=== PATIENT | male | born 1955 | race Hispanic/Latino ===

== ENCOUNTER 2019-04-09 19:25 | Inpatient (IN) | payer MEDICARE ==
[2019-04-09] MEDS ORDERED: NACL 0.9% 500 ML 500 ML IV ONE (20:05)
--- NOTE | 2019-04-09 20:09 | Emergency Department Report ---
ED Altered Mental Status HPI - General Stated Complaint: GENERAL PAIN Time Seen by Provider: 04/09/19 20:01 Source: patient Limitations: Altered Mental Status - History of Present Illness Initial Comments: Mr. Martin is a 64 yo male with hx of "[place] measles", "damage to left brain", hx of dementia, anxiety depression dyslipidemia, acid reflux with fever, generalized malaise hx of "renal failure" from home. Sister and several relatives are patient caregiver. Mr. Martin is a poor historian. He speaks of tailbone pain. Sister Karla Strickland is a caregiver. She give hx. She has n oticed fever, rapid heart beat. He has not eaten for quite some time. Not as active. No walking. He can not read or write due to intellectual disability. He retired 5 years ago. He worked for [employer]. No recent falls. Did have a fall November. Has had tremors. No concrete diagnosis of Parkinson's disease PCP Dr. Red Velasquez. Medications: Acid reflux medication Pravastatin Xanax [place] 10/325 Complaint: altered mental status -: unknown Severity: mild, moderate Consistency of Symptoms: waxing and waning Context: unknown Associated Symptoms: malaise - Related Data Home Medications Medication Instructions Recorded Confirmed Last Taken Oxycodone HCl/Acetaminophen 1 tab PO Q6H 02/02/16 02/02/16 Unknown [Percocet 10/325 mg] Rosuvastatin Calcium [Crestor] 40 mg PO QHS 02/02/16 02/02/16 Unknown guaiFENesin/DEXTROMETHORPHAN 1 tab PO BID 02/02/16 02/02/16 Unknown [Mucinex Dm ER 1,200-60 mg Tab] methOCARBAMOL [Robaxin TAB] 500 mg PO Q6H PRN 02/02/16 02/02/16 Unknown Previous Rx's Medication Instructions Recorded Last Taken Type ALPRAZolam [Xanax TAB] 1 mg PO TID PRN #20 tablet 02/02/16 Unknown Rx Allergies Allergy/AdvReac Type Severity Reaction Status Date / Time No Known Allergies Allergy Unverified 02/02/16 11:34 ED Review of Systems ROS: Stated complaint: GENERAL PAIN Other details as noted in HPI Comment: Unobtainable due to pts medical conditions (altered mental status) ED Past Medical Hx - Past Medical History Previous Medical History?: Yes Additional medical history: ANXIETY/ CHRONIC BACK PAIN/hyperlipidemia - Surgical History Additional Surgical History: unknown - Social History Smoking Status: Current Every Day Smoker Substance Use Type: None - Medications Home Medications: Home Medications Medication Instructions Recorded Confirmed Last Taken Type ALPRAZolam [Xanax TAB] 1 mg PO TID PRN #20 tablet 02/02/16 Unknown Rx Oxycodone HCl/Acetaminophen 1 tab PO Q6H 02/02/16 02/02/16 Unknown History [Percocet 10/325 mg] Rosuvastatin Calcium [Crestor] 40 mg PO QHS 02/02/16 02/02/16 Unknown History guaiFENesin/DEXTROMETHORPHAN 1 tab PO BID 02/02/16 02/02/16 Unknown History [Mucinex Dm ER 1,200-60 mg Tab] methOCARBAMOL [Robaxin TAB] 500 mg PO Q6H PRN 02/02/16 02/02/16 Unknown History ED Physical Exam - General Limitations: Altered Mental Status General appearance: alert, other (tremulous, appears chronically ill) - Head Head exam: Present: atraumatic, normocephalic - Eye Eye exam: Present: normal appearance - ENT ENT exam: Present: mucous membranes dry - Neck Neck exam: Present: normal inspection - Respiratory Respiratory exam: Present: normal lung sounds bilaterally, wheezes, rales, rhonchi. Absent: respiratory distress - Cardiovascular Cardiovascular Exam: Present: tachycardia, irregular rhythm, normal heart sounds. Absent: systolic murmur, diastolic murmur, rubs, gallop - GI/Abdominal GI/Abdominal exam: Present: soft, normal bowel sounds. Absent: distended, tenderness, guarding, rebound - Rectal Rectal exam: Present: deferred, other (sacral redness intact skin) - Extremities Exam Extremities exam: Present: normal inspection - Back Exam Back exam: Present: normal inspection - Neurological Exam Neurological exam: Present: alert, other (oriented to name only) - Psychiatric Psychiatric exam: Present: flat affect - Skin Skin exam: Present: pallor. Absent: rash ED Course Vital Signs 04/09/19 04/09/19 19:59 20:10 Temperature 102.3 F H Pulse Rate 140 H Respiratory 20 20 Rate Blood Pressure 119/80 O2 Sat by Pulse 100 100 Oximetry - Lab Data Result diagrams: 04/09/19 20:22 04/09/19 20:22 Lab Results 04/09/19 04/09/19 04/09/19 Range/Units 20:22 20:22 20:22 WBC 15.4 H (4.5-11.0) K/mm3 RBC 5.36 H (3.65-5.03) M/mm3 Hgb 16.9 H (11.8-15.2) gm/dl Hct 49.5 H (35.5-45.6) % MCV 93 (84-94) fl MCH 32 (28-32) pg MCHC 34 (32-34) % RDW 13.5 (13.2-15.2) % Plt Count 329 (140-440) K/mm3 Lymph % (Auto) 6.0 L (13.4-35.0) % [place] % (Auto) 4.4 (0.0-7.3) % Eos % (Auto) 0.1 (0.0-4.3) % Baso % (Auto) 0.5 (0.0-1.8) % Lymph # 0.9 L (1.2-5.4) K/mm3 [place] # 0.7 (0.0-0.8) K/mm3 Eos # 0.0 (0.0-0.4) K/mm3 Baso # 0.1 (0.0-0.1) K/mm3 Seg Neutrophils % 89.0 H (40.0-70.0) % Seg Neutrophils # 13.7 H (1.8-7.7) K/mm3 PT 12.8 (12.2-14.9) Sec. INR 0.91 (0.87-1.13) Sodium 130 L (137-145) mmol/L Potassium 4.9 (3.6-5.0) mmol/L Chloride 92.6 L (98-107) mmol/L Carbon Dioxide 24 (22-30) mmol/L Anion Gap 18 mmol/L BUN 13 (9-20) mg/dL Creatinine 1.2 (0.8-1.5) mg/dL Estimated GFR > 60 ml/min BUN/Creatinine Ratio 11 % Glucose 186 H (75-100) mg/dL Lactic Acid (0.7-2.0) mmol/L Calcium 8.4 (8.4-10.2) mg/dL Total Bilirubin 1.70 H (0.1-1.2) mg/dL AST 121 H (5-40) units/L ALT 85 H (7-56) units/L Alkaline Phosphatase 442 H (35-129) units/L Ammonia (25-60) umol/L Total Creatine Kinase (55-170) units/L Troponin T 0.044 H (0.00-0.029) ng/mL Total Protein 6.9 (6.3-8.2) g/dL Albumin 3.6 L (3.9-5) g/dL Albumin/Globulin Ratio 1.1 % Triglycerides 120 (2-149) mg/dL Cholesterol 179 (50-199) mg/dL LDL Cholesterol Direct 115 (50-130) mg/dL HDL Cholesterol 56 (40-59) mg/dL Cholesterol/HDL Ratio 3.19 % TSH (0.270-4.200) mlU/mL Urine Color (Yellow) Urine Turbidity (Clear) Urine pH (5.0-7.0) Ur Specific [place] (1.003-1.030) Urine Protein (Negative) mg/dL Urine Glucose (UA) (Negative) mg/dL Urine Ketones (Negative) mg/dL Urine Blood (Negative) Urine Nitrite (Negative) Urine Bilirubin (Negative) Urine Urobilinogen (<2.0) mg/dL Ur Leukocyte Esterase (Negative) Urine WBC (Auto) (0.0-6.0) /HPF Urine RBC (Auto) (0.0-6.0) /HPF U Epithel Cells (Auto) (0-13.0) /HPF Urine Mucus /HPF Salicylates (2.8-20.0) mg/dL Urine Opiates Screen Urine Methadone Screen Acetaminophen (10.0-30.0) ug/mL Ur Barbiturates Screen Ur Phencyclidine Scrn Ur Amphetamines Screen U Benzodiazepines Scrn Urine Cocaine Screen U Marijuana (THC) Screen Drugs of Abuse Note Plasma/Serum Alcohol (0-0.07) % 04/09/19 04/09/19 04/09/19 Range/Units 20:22 20:22 20:22 WBC (4.5-11.0) K/mm3 RBC (3.65-5.03) M/mm3 Hgb (11.8-15.2) gm/dl Hct (35.5-45.6) % MCV (84-94) fl MCH (28-32) pg MCHC (32-34) % RDW (13.2-15.2) % Plt Count (140-440) K/mm3 Lymph % (Auto) (13.4-35.0) % [place] % (Auto) (0.0-7.3) % Eos % (Auto) (0.0-4.3) % Baso % (Auto) (0.0-1.8) % Lymph # (1.2-5.4) K/mm3 [place] # (0.0-0.8) K/mm3 Eos # (0.0-0.4) K/mm3 Baso # (0.0-0.1) K/mm3 Seg Neutrophils % (40.0-70.0) % Seg Neutrophils # (1.8-7.7) K/mm3 PT (12.2-14.9) Sec. INR (0.87-1.13) Sodium (137-145) mmol/L Potassium (3.6-5.0) mmol/L Chloride (98-107) mmol/L Carbon Dioxide (22-30) mmol/L Anion Gap mmol/L BUN (9-20) mg/dL Creatinine (0.8-1.5) mg/dL Estimated GFR ml/min BUN/Creatinine Ratio % Glucose (75-100) mg/dL Lactic Acid 1.80 (0.7-2.0) mmol/L Calcium (8.4-10.2) mg/dL Total Bilirubin (0.1-1.2) mg/dL AST (5-40) units/L ALT (7-56) units/L Alkaline Phosphatase (35-129) units/L Ammonia (25-60) umol/L Total Creatine Kinase (55-170) units/L Troponin T (0.00-0.029) ng/mL Total Protein (6.3-8.2) g/dL Albumin (3.9-5) g/dL Albumin/Globulin Ratio % Triglycerides (2-149) mg/dL Cholesterol (50-199) mg/dL LDL Cholesterol Direct (50-130) mg/dL HDL Cholesterol (40-59) mg/dL Cholesterol/HDL Ratio % TSH (0.270-4.200) mlU/mL Urine Color (Yellow) Urine Turbidity (Clear) Urine pH (5.0-7.0) Ur Specific [place] (1.003-1.030) Urine Protein (Negative) mg/dL Urine Glucose (UA) (Negative) mg/dL Urine Ketones (Negative) mg/dL Urine Blood (Negative) Urine Nitrite (Negative) Urine Bilirubin (Negative) Urine Urobilinogen (<2.0) mg/dL Ur Leukocyte Esterase (Negative) Urine WBC (Auto) (0.0-6.0) /HPF Urine RBC (Auto) (0.0-6.0) /HPF U Epithel Cells (Auto) (0-13.0) /HPF Urine Mucus /HPF Salicylates < 0.3 L (2.8-20.0) mg/dL Urine Opiates Screen Urine Methadone Screen Acetaminophen < 5.0 L (10.0-30.0) ug/mL Ur Barbiturates Screen Ur Phencyclidine Scrn Ur Amphetamines Screen U Benzodiazepines Scrn Urine Cocaine Screen U Marijuana (THC) Screen Drugs of Abuse Note Plasma/Serum Alcohol (0-0.07) % 04/09/19 04/09/19 04/09/19 Range/Units 20:22 20:22 20:22 WBC (4.5-11.0) K/mm3 RBC (3.65-5.03) M/mm3 Hgb (11.8-15.2) gm/dl Hct (35.5-45.6) % MCV (84-94) fl MCH (28-32) pg MCHC (32-34) % RDW (13.2-15.2) % Plt Count (140-440) K/mm3 Lymph % (Auto) (13.4-35.0) % [place] % (Auto) (0.0-7.3) % Eos % (Auto) (0.0-4.3) % Baso % (Auto) (0.0-1.8) % Lymph # (1.2-5.4) K/mm3 [place] # (0.0-0.8) K/mm3 Eos # (0.0-0.4) K/mm3 Baso # (0.0-0.1) K/mm3 Seg Neutrophils % (40.0-70.0) % Seg Neutrophils # (1.8-7.7) K/mm3 PT (12.2-14.9) Sec. INR (0.87-1.13) Sodium (137-145) mmol/L Potassium (3.6-5.0) mmol/L Chloride (98-107) mmol/L Carbon Dioxide (22-30) mmol/L Anion Gap mmol/L BUN (9-20) mg/dL Creatinine (0.8-1.5) mg/dL Estimated GFR ml/min BUN/Creatinine Ratio % Glucose (75-100) mg/dL Lactic Acid (0.7-2.0) mmol/L Calcium (8.4-10.2) mg/dL Total Bilirubin (0.1-1.2) mg/dL AST (5-40) units/L ALT (7-56) units/L Alkaline Phosphatase (35-129) units/L Ammonia 44.0 (25-60) umol/L Total Creatine Kinase 23 L (55-170) units/L Troponin T (0.00-0.029) ng/mL Total Protein (6.3-8.2) g/dL Albumin (3.9-5) g/dL Albumin/Globulin Ratio % Triglycerides (2-149) mg/dL Cholesterol (50-199) mg/dL LDL Cholesterol Direct (50-130) mg/dL HDL Cholesterol (40-59) mg/dL Cholesterol/HDL Ratio % TSH (0.270-4.200) mlU/mL Urine Color (Yellow) Urine Turbidity (Clear) Urine pH (5.0-7.0) Ur Specific [place] (1.003-1.030) Urine Protein (Negative) mg/dL Urine Glucose (UA) (Negative) mg/dL Urine Ketones (Negative) mg/dL Urine Blood (Negative) Urine Nitrite (Negative) Urine Bilirubin (Negative) Urine Urobilinogen (<2.0) mg/dL Ur Leukocyte Esterase (Negative) Urine WBC (Auto) (0.0-6.0) /HPF Urine RBC (Auto) (0.0-6.0) /HPF U Epithel Cells (Auto) (0-13.0) /HPF Urine Mucus /HPF Salicylates (2.8-20.0) mg/dL Urine Opiates Screen Urine Methadone Screen Acetaminophen (10.0-30.0) ug/mL Ur Barbiturates Screen Ur Phencyclidine Scrn Ur Amphetamines Screen U Benzodiazepines Scrn Urine Cocaine Screen U Marijuana (THC) Screen Drugs of Abuse Note Plasma/Serum Alcohol < 0.01 (0-0.07) % 04/09/19 04/09/19 04/09/19 Range/Units 20:22 21:49 21:49 WBC (4.5-11.0) K/mm3 RBC (3.65-5.03) M/mm3 Hgb (11.8-15.2) gm/dl Hct (35.5-45.6) % MCV (84-94) fl MCH (28-32) pg MCHC (32-34) % RDW (13.2-15.2) % Plt Count (140-440) K/mm3 Lymph % (Auto) (13.4-35.0) % [place] % (Auto) (0.0-7.3) % Eos % (Auto) (0.0-4.3) % Baso % (Auto) (0.0-1.8) % Lymph # (1.2-5.4) K/mm3 [place] # (0.0-0.8) K/mm3 Eos # (0.0-0.4) K/mm3 Baso # (0.0-0.1) K/mm3 Seg Neutrophils % (40.0-70.0) % Seg Neutrophils # (1.8-7.7) K/mm3 PT (12.2-14.9) Sec. INR (0.87-1.13) Sodium (137-145) mmol/L Potassium (3.6-5.0) mmol/L Chloride (98-107) mmol/L Carbon Dioxide (22-30) mmol/L Anion Gap mmol/L BUN (9-20) mg/dL Creatinine (0.8-1.5) mg/dL Estimated GFR ml/min BUN/Creatinine Ratio % Glucose (75-100) mg/dL Lactic Acid (0.7-2.0) mmol/L Calcium (8.4-10.2) mg/dL Total Bilirubin (0.1-1.2) mg/dL AST (5-40) units/L ALT (7-56) units/L Alkaline Phosphatase (35-129) units/L Ammonia (25-60) umol/L Total Creatine Kinase (55-170) units/L Troponin T (0.00-0.029) ng/mL Total Protein (6.3-8.2) g/dL Albumin (3.9-5) g/dL Albumin/Globulin Ratio % Triglycerides (2-149) mg/dL Cholesterol (50-199) mg/dL LDL Cholesterol Direct (50-130) mg/dL HDL Cholesterol (40-59) mg/dL Cholesterol/HDL Ratio % TSH 1.160 (0.270-4.200) mlU/mL Urine Color [place] (Yellow) Urine Turbidity Clear (Clear) Urine pH 6.0 (5.0-7.0) Ur Specific [place] 1.016 (1.003-1.030) Urine Protein <15 mg/dl (Negative) mg/dL Urine Glucose (UA) Neg (Negative) mg/dL Urine Ketones Neg (Negative) mg/dL Urine Blood Neg (Negative) Urine Nitrite Neg (Negative) Urine Bilirubin Neg (Negative) Urine Urobilinogen 4.0 (<2.0) mg/dL Ur Leukocyte Esterase Neg (Negative) Urine WBC (Auto) 2.0 (0.0-6.0) /HPF Urine RBC (Auto) 1.0 (0.0-6.0) /HPF U Epithel Cells (Auto) < 1.0 (0-13.0) /HPF Urine Mucus Few /HPF Salicylates (2.8-20.0) mg/dL Urine Opiates Screen Presumptive negative Urine Methadone Screen Presumptive negative Acetaminophen (10.0-30.0) ug/mL Ur Barbiturates Screen Presumptive negative Ur Phencyclidine Scrn Presumptive negative Ur Amphetamines Screen Presumptive negative U Benzodiazepines Scrn Presumptive positive Urine Cocaine Screen Presumptive negative U Marijuana (THC) Screen Presumptive negative Drugs of Abuse Note Disclamer Plasma/Serum Alcohol (0-0.07) % - Radiology Data Radiology results: report reviewed ap cxr: left lower lobe atelectasis heat CT: 1.3 extraaxial density left frontal lobe SDH vs artifact vs meningioma - Medical Decision Making Mr. Martin presents with fever, tachycardia, poor appetite, decreased activity. Possible pneumonia according to CXR atelectasis left lower lobe. I spoke with radiologist, suspect artifact on CT head. No hx of trauma a ccording to sister. No signs of head trauma. Sister did state that he has responded to SNF for rehabilitation after previous hospitalization. With hemoconcentration volume contraction evident with hyponatremia. Irregular heartbeat with tachycardia seen on quality assurance monitor. Dilitiazem bolus administered. Repeat heartrate 70 bpm Admitted to hospitalist service for further treatment Critical Care Time: Yes Critical care attestation.: If time is entered above; I have spent that time in minutes in the direct care of this critically ill patient, excluding procedure time. 40 minutes of critical care time excluding procedures were used in the care of the patient. Patient required multiple assessments and interventions. I reviewed the electronic medical record. I spoke with consultants involved in the care of the patient. ED Disposition Clinical Impression: Community acquired pneumonia, SIRS (systemic inflammatory response syndrome), Dehydration with hyponatremia Disposition: OP ADMIT IP TO THIS HOSP Is pt being admited?: Yes Does the pt Need Aspirin: No Condition: Stable
[2019-04-09] MEDS ORDERED: TYLENOL PR ONE (20:27)
[2019-04-09 20:48] LABS: Basophils # (Auto) 0.1 K/mm3 (0.0-0.1); Basophils % (Auto) 0.5 % (0.0-1.8); Eosinophils % (Auto) 0.1 % (0.0-4.3); Hematocrit 49.5 % (35.5-45.6); Hemoglobin 16.9 gm/dl (11.8-15.2); Lymphocytes # (Auto) 0.9 K/mm3 (1.2-5.4); Mean Corpuscular HGB Conc 34 % (32-34); Mean Corpuscular Volume 93 fl (84-94); Monocytes # (Auto) 0.7 K/mm3 (0.0-0.8); Monocytes % (Auto) 4.4 % (0.0-7.3); Platelet Count 329 K/mm3 (140-440); Red Blood Count 5.36 M/mm3 (3.65-5.03); Red Cell Distribution Width 13.5 % (13.2-15.2)
[2019-04-09 21:04] LABS: Alanine Aminotransferase 85 units/L (7-56); Albumin 3.6 g/dL (3.9-5); BUN/Creatinine Ratio 11; Blood Urea Nitrogen 13 mg/dL (9-20); Calcium 8.4 mg/dL (8.4-10.2); Hemolysis Index 2
[2019-04-09 21:06] LABS: INR 0.91 (0.87-1.13)
[2019-04-09 21:15] LABS: Chol/HDL Ratio 3.19 %; HDL Cholesterol 56 mg/dL (40-59); LDL Cholesterol,Direct 115 mg/dL (50-130)
--- NOTE | 2019-04-09 21:41 | XRay Report ---
PROCEDURE: XR CHEST 1V AP TECHNIQUE: Chest radiograph single view. HISTORY: Altered Mental Status COMPARISONS: None . FINDINGS: Heart: Enlarged, left ventricular configuration. Mediastinum/Vessels: Mildly engorged. Lungs/Pleural space: Left lung base slightly clipped. Elevated left hemidiaphragm. Partially obscure d left hemidiaphragm. Slight blunting of left costophrenic sulcus. Findings suggestive of left lower lobe atelectasis. Bony thorax: No acute osseous abnormality. Life support devices: None. IMPRESSION: Findings suggesting left lower lobe volume loss. Cardiomegaly with mild pulmonary vascular congestion but no overt failure. Recommend follow-up with 2 views. This document is electronically signed by Laurie Matos MD., Apr 09 2019 09:38:32 PM ET
--- NOTE | 2019-04-09 22:17 | Cat Scan Report ---
PROCEDURE: CT HEAD/BRAIN WO CON TECHNIQUE: Computerized tomography of the head was performed without contrast material. CT DOSE LENGTH PRODUCT: 1841 mGycm HISTORY: Altered Mental Status COMPARISONS: None . FINDINGS: There is a 13 mm extra-axial density in the left frontal region on image 46. Subdural hematoma cannot be excluded. Artifact or meningioma also considered. Follow-up contrast enhanced MRI may be helpful. There is no mass effect or midline shift. There is no evidence of recent infarction. There is mild central and cortical atrophy. There is no hydrocephalus or asymmetry. There is no hyperdense arterial thrombus. Bony calvarium is intact. Nasal sinuses are clear. IMPRESSION: There is a 13 mm extra-axial density in the left frontal region on image 46. Subdural hematoma cannot be excluded. Artifact or meningioma also considered. Follow-up contrast enhanced MRI may be helpful. There is no mass effect or midline shift. There is no evidence of recent infarction. There is no hyperdense arterial thrombus. Dr. Robertson was notified by telephone at 10:20 PM This document is electronically signed by Abe Garcia MD., Apr 09 2019 10:15:25 PM ET
[2019-04-09] MEDS ORDERED: CARDIZEM IVP ONE (22:25)
[2019-04-09] MEDS ORDERED: NACL 0.9% 1000 ML 1,000 ML IV ONE (22:26)
[2019-04-09 22:36] LABS: Bilirubin,Urine NEG (Negative); Blood,Urine NEG (Negative); Color,Urine Amber (Yellow); Mucus,Urine FEW /HPF; Protein,Urine <15 mg/dL mg/dL (Negative)
[2019-04-09 22:51] LABS: Amphetamine Screen,Urine PRESUMPTIVE NEGATIVE; Cannabinoid Screen,Urine PRESUMPTIVE NEGATIVE; Cocaine Screen,Urine PRESUMPTIVE NEGATIVE; Methadone Screen,Urine PRESUMPTIVE NEGATIVE; Opiate Screen,Urine PRESUMPTIVE NEGATIVE
[2019-04-09 23:06] LABS: Benzodiazepines Screen,Urine PRESUMPTIVE POSITIVE
--- NOTE | 2019-04-09 23:51 | History and Physical Report ---
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 Pt is awake and alert but unable to provide medical history mental retardation. In the ER patient had a temperature of 102.3 heart rate is 140, laboratory values showed elevated LFTs, H&H and WBC, broad-spectrum antibiotics was initiated if patient is admitted for further evaluation and treatment. PCP Dr. Red Velasquez. Past History Past Medical History: hypertension, hyperlipidemia, other (metabolic encephalopathy) Past Surgical History: No surgical history Social history: no significant social history, lives with family Family history: no significant family history Medications and Allergies Allergies Allergy/AdvReac Type Severity Reaction Status Date / Time No Known Allergies Allergy Unverified 02/02/16 11:34 Home Medications Medication Instructions Recorded Confirmed Last Taken Type Rosuvastatin Calcium [Crestor] 40 mg PO QHS 02/02/16 04/10/19 Unknown History ALPRAZolam [Xanax TAB] 1 mg PO TID PRN #10 tablet 04/15/19 Unknown Rx Amiodarone [Cordarone 200 MG TAB] 200 mg PO DAILY #30 tablet 04/15/19 Unknown Rx Carvedilol [Coreg] 6.25 mg PO BID #60 tablet 04/15/19 Unknown Rx Docusate Sodium [Colace CAP] 100 mg PO BID #60 capsule 04/15/19 Unknown Rx Polyethylene Glycol 3350 [Miralax 17 gm PO QDAY PRN #30 powd.pack 04/15/19 Unknown Rx 3350] oxyCODONE /ACETAMINOPHEN [Percocet 1 tab PO Q6H PRN #10 tablet 04/15/19 Unknown Rx 5/325 mg] Active Meds: Active Medications Enoxaparin Sodium (Lovenox) 40 mg SUB-Q QDAY [facility] Ceftriaxone Sodium (Rocephin/Ns 2 Gm/100 Ml) 2 gm in 100 mls @ 200 mls/hr IV Q24HR [facility]; Protocol Azithromycin 500 mg/ Sodium (Chloride) 250 mls @ 250 mls/hr IV Q24HR [facility]; Protocol Review of Systems ROS unobtainable: due to mental status Exam - Constitutional Vitals: Temp Pulse Resp BP Pulse Ox 102.3 F H 140 H 20 119/80 100 04/09/19 19:59 04/09/19 19:59 04/09/19 20:10 04/09/19 19:59 04/09/19 20:10 General appearance: Present: no acute distress - EENT Eyes: Present: EOM intact ENT: hearing intact - Neck Neck: Present: normal ROM - Respiratory Respiratory: bilateral: CTA - Cardiovascular Rhythm: irregularly irregular - Extremities Extremities: no ischemia, No edema Peripheral Pulses: within normal limits - Abdominal General gastrointestinal: Present: deferred Male genitourinary: Present: deferred - Rectal Rectal Exam: deferred - Integumentary Integumentary: Present: warm, dry - Musculoskeletal Musculoskeletal: right sided weakness - Psychiatric Psychiatric: other (altered mental status) - Neurologic Neurologic: focal deficits Results - Labs CBC & Chem 7: 04/09/19 20:22 04/09/19 20:22 Labs: Laboratory Last Values WBC 15.4 K/mm3 (4.5-11.0) H 04/09/19 20:22 RBC 5.36 M/mm3 (3.65-5.03) H 04/09/19 20:22 Hgb 16.9 gm/dl (11.8-15.2) H 04/09/19 20:22 Hct 49.5 % (35.5-45.6) H 04/09/19 20:22 MCV 93 fl (84-94) 04/09/19 20:22 MCH 32 pg (28-32) 04/09/19 20:22 MCHC 34 % (32-34) 04/09/19 20:22 RDW 13.5 % (13.2-15.2) 04/09/19 20:22 Plt Count 329 K/mm3 (140-440) 04/09/19 20:22 Lymph % (Auto) 6.0 % (13.4-35.0) L 04/09/19 20:22 [place] % (Auto) 4.4 % (0.0-7.3) 04/09/19 20:22 Eos % (Auto) 0.1 % (0.0-4.3) 04/09/19 20:22 Baso % (Auto) 0.5 % (0.0-1.8) 04/09/19 20:22 Lymph # 0.9 K/mm3 (1.2-5.4) L 04/09/19 20:22 [place] # 0.7 K/mm3 (0.0-0.8) 04/09/19 20:22 Eos # 0.0 K/mm3 (0.0-0.4) 04/09/19 20:22 Baso # 0.1 K/mm3 (0.0-0.1) 04/09/19 20:22 Seg Neutrophils % 89.0 % (40.0-70.0) H 04/09/19 20:22 Seg Neutrophils # 13.7 K/mm3 (1.8-7.7) H 04/09/19 20:22 PT 12.8 Sec. (12.2-14.9) 04/09/19 20:22 INR 0.91 (0.87-1.13) 04/09/19 20:22 Sodium 130 mmol/L (137-145) L 04/09/19 20:22 Potassium 4.9 mmol/L (3.6-5.0) 04/09/19 20:22 Chloride 92.6 mmol/L (98-107) L 04/09/19 20:22 Carbon Dioxide 24 mmol/L (22-30) 04/09/19 20:22 18 mmol/L 04/09/19 20:22 BUN 13 mg/dL (9-20) 04/09/19 20:22 1.2 mg/dL (0.8-1.5) 04/09/19 20:22 Estimated GFR > 60 ml/min 04/09/19 20:22 11 % 04/09/19 20:22 Glucose 186 mg/dL (75-100) H 04/09/19 20:22 Lactic Acid 1.80 mmol/L (0.7-2.0) 04/09/19 20:22 Calcium 8.4 mg/dL (8.4-10.2) 04/09/19 20:22 1.70 mg/dL (0.1-1.2) H 04/09/19 20:22 AST 121 units/L (5-40) H 04/09/19 20:22 ALT 85 units/L (7-56) H 04/09/19 20:22 442 units/L (35-129) H 04/09/19 20:22 44.0 umol/L (25-60) 04/09/19 20:22 23 units/L (55-170) L 04/09/19 20:22 0.044 ng/mL (0.00-0.029) H 04/09/19 20:22 6.9 g/dL (6.3-8.2) 04/09/19 20:22 3.6 g/dL (3.9-5) L 04/09/19 20:22 1.1 % 04/09/19 20:22 Triglycerides 120 mg/dL (2-149) 04/09/19 20:22 Cholesterol 179 mg/dL (50-199) 04/09/19 20:22 115 mg/dL (50-130) 04/09/19 20:22 56 mg/dL (40-59) 04/09/19 20:22 3.19 % 04/09/19 20:22 TSH 1.160 mlU/mL (0.270-4.200) 04/09/19 20:22 Katie (Yellow) 04/09/19 21:49 Clear (Clear) 04/09/19 21:49 6.0 (5.0-7.0) 04/09/19 21:49 Ur Specific [place] 1.016 (1.003-1.030) 04/09/19 21:49 <15 mg/dl mg/dL (Negative) 04/09/19 21:49 Neg mg/dL (Negative) 04/09/19 21:49 Neg mg/dL (Negative) 04/09/19 21:49 Neg (Negative) 04/09/19 21:49 Neg (Negative) 04/09/19 21:49 Neg (Negative) 04/09/19 21:49 4.0 mg/dL (<2.0) 04/09/19 21:49 Ur Leukocyte Esterase Neg (Negative) 04/09/19 21:49 2.0 /HPF (0.0-6.0) 04/09/19 21:49 1.0 /HPF (0.0-6.0) 04/09/19 21:49 U Epithel Cells (Auto) < 1.0 /HPF (0-13.0) 04/09/19 21:49 Few /HPF 04/09/19 21:49 Salicylates < 0.3 mg/dL (2.8-20.0) L 04/09/19 20:22 Presumptive negative 04/09/19 21:49 Presumptive negative 04/09/19 21:49 Acetaminophen < 5.0 ug/mL (10.0-30.0) L 04/09/19 20:22 Ur Barbiturates Screen Presumptive negative 04/09/19 21:49 Ur Phencyclidine Scrn Presumptive negative 04/09/19 21:49 Ur Amphetamines Screen Presumptive negative 04/09/19 21:49 U Benzodiazepines Scrn Presumptive positive 04/09/19 21:49 Presumptive negative 04/09/19 21:49 U Marijuana (THC) Screen Presumptive negative 04/09/19 21:49 Disclamer 04/09/19 21:49 Plasma/Serum Alcohol < 0.01 % (0-0.07) 04/09/19 20:22 Assessment and Plan Assessment and plan: 1. SIRS 2. Acute febrile illness (likely due to above) 3. Metabolic encephalopathy 4. Leukocytosis (likely due to #1&2) 5. Dehydration 6. Erythrocytosis (likely due to dehydration) 7. Uncontrolled DM type II 8. Elevated LFTs 9. Elevated troponin 10. Hyperlipidemia 11. GERD 12. H/o childhood [place] measle with MR 13. Hyperbilirubenia 14. Obesity Plan: Patient is admitted Broad-spectrum antibiotics Ammonia level Evaluation for hepatic infection Abdominal US IV fluids for hydration Repeat CMP and CBC in the Glycemic management with insulin per sliding scale His home meds DVT prophylaxis with Lovenox Patient's condition and plan of care discussed with Dr. Clarke Advance Directives: Yes VTE prophylaxis?: Chemical Plan of care discussed with patient/family: Yes <BECCA CLARKE - Last Filed: 04/16/19 22:14> History of Present Illness Date of admission: 04/09/19 23:31 Medications and Allergies Active Meds: Active Medications Docusate Sodium (Colace) 100 mg PO BID MARIUSZ Piperacillin Sod/Tazobactam Sod (Zosyn/Ns 3.375gm/50ml) 3.375 gm in 50 mls @ 100 mls/hr IV Q8HR [facility] Insulin Human Regular (Humulin R) 0 units SUB-Q ACHS MARIUSZ; Protocol Ondansetron HCl (Zofran) 4 mg IV Q8H PRN PRN Reason: Nausea And Vomiting Oxycodone/Acetaminophen (Percocet 5/325) 1 tab PO Q6H PRN PRN Reason: Pain, Moderate (4-6) Sodium Chloride (Sodium Chloride Flush Syringe 10 Ml) 10 ml IV BID [facility] Exam - Constitutional Vitals: Temp Pulse Resp BP Pulse Ox 102.3 F H 80 16 100/67 97 04/09/19 19:59 04/10/19 01:32 04/10/19 01:32 04/10/19 01:32 04/10/19 01:32 Results - Labs CBC & Chem 7: 04/14/19 05:04 04/14/19 05:04 Labs: Laboratory Last Values WBC 15.4 K/mm3 (4.5-11.0) H 04/09/19 20:22 RBC 5.36 M/mm3 (3.65-5.03) H 04/09/19 20:22 Hgb 16.9 gm/dl (11.8-15.2) H 04/09/19 20:22 Hct 49.5 % (35.5-45.6) H 04/09/19 20:22 MCV 93 fl (84-94) 04/09/19 20:22 MCH 32 pg (28-32) 04/09/19 20:22 MCHC 34 % (32-34) 04/09/19 20:22 RDW 13.5 % (13.2-15.2) 04/09/19 20:22 Plt Count 329 K/mm3 (140-440) 04/09/19 20:22 Lymph % (Auto) 6.0 % (13.4-35.0) L 04/09/19 20:22 [place] % (Auto) 4.4 % (0.0-7.3) 04/09/19 20:22 Eos % (Auto) 0.1 % (0.0-4.3) 04/09/19 20:22 Baso % (Auto) 0.5 % (0.0-1.8) 04/09/19 20:22 Lymph # 0.9 K/mm3 (1.2-5.4) L 04/09/19 20:22 [place] # 0.7 K/mm3 (0.0-0.8) 04/09/19 20:22 Eos # 0.0 K/mm3 (0.0-0.4) 04/09/19 20:22 Baso # 0.1 K/mm3 (0.0-0.1) 04/09/19 20:22 Seg Neutrophils % 89.0 % (40.0-70.0) H 04/09/19 20:22 Seg Neutrophils # 13.7 K/mm3 (1.8-7.7) H 04/09/19 20:22 PT 12.8 Sec. (12.2-14.9) 04/09/19 20:22 INR 0.91 (0.87-1.13) 04/09/19 20:22 Sodium 130 mmol/L (137-145) L 04/09/19 20:22 Potassium 4.9 mmol/L (3.6-5.0) 04/09/19 20:22 Chloride 92.6 mmol/L (98-107) L 04/09/19 20:22 Carbon Dioxide 24 mmol/L (22-30) 04/09/19 20:22 18 mmol/L 04/09/19 20:22 BUN 13 mg/dL (9-20) 04/09/19 20:22 1.2 mg/dL (0.8-1.5) 04/09/19 20:22 Estimated GFR > 60 ml/min 04/09/19 20:22 11 % 04/09/19 20:22 Glucose 186 mg/dL (75-100) H 04/09/19 20:22 Lactic Acid 1.80 mmol/L (0.7-2.0) 04/09/19 20:22 Calcium 8.4 mg/dL (8.4-10.2) 04/09/19 20:22 1.70 mg/dL (0.1-1.2) H 04/09/19 20:22 AST 121 units/L (5-40) H 04/09/19 20:22 ALT 85 units/L (7-56) H 04/09/19 20:22 442 units/L (35-129) H 04/09/19 20:22 44.0 umol/L (25-60) 04/09/19 20:22 23 units/L (55-170) L 04/09/19 20:22 0.044 ng/mL (0.00-0.029) H 04/09/19 20:22 6.9 g/dL (6.3-8.2) 04/09/19 20:22 3.6 g/dL (3.9-5) L 04/09/19 20:22 1.1 % 04/09/19 20:22 Triglycerides 120 mg/dL (2-149) 04/09/19 20:22 Cholesterol 179 mg/dL (50-199) 04/09/19 20:22 115 mg/dL (50-130) 04/09/19 20:22 56 mg/dL (40-59) 04/09/19 20:22 3.19 % 04/09/19 20:22 TSH 1.160 mlU/mL (0.270-4.200) 04/09/19 20:22 Katie (Yellow) 04/09/19 21:49 Clear (Clear) 04/09/19 21:49 6.0 (5.0-7.0) 04/09/19 21:49 Ur Specific [place] 1.016 (1.003-1.030) 04/09/19 21:49 <15 mg/dl mg/dL (Negative) 04/09/19 21:49 Neg mg/dL (Negative) 04/09/19 21:49 Neg mg/dL (Negative) 04/09/19 21:49 Neg (Negative) 04/09/19 21:49 Neg (Negative) 04/09/19 21:49 Neg (Negative) 04/09/19 21:49 4.0 mg/dL (<2.0) 04/09/19 21:49 Ur Leukocyte Esterase Neg (Negative) 04/09/19 21:49 2.0 /HPF (0.0-6.0) 04/09/19 21:49 1.0 /HPF (0.0-6.0) 04/09/19 21:49 U Epithel Cells (Auto) < 1.0 /HPF (0-13.0) 04/09/19 21:49 Few /HPF 04/09/19 21:49 Salicylates < 0.3 mg/dL (2.8-20.0) L 04/09/19 20:22 Presumptive negative 04/09/19 21:49 Presumptive negative 04/09/19 21:49 Acetaminophen < 5.0 ug/mL (10.0-30.0) L 04/09/19 20:22 Ur Barbiturates Screen Presumptive negative 04/09/19 21:49 Ur Phencyclidine Scrn Presumptive negative 04/09/19 21:49 Ur Amphetamines Screen Presumptive negative 04/09/19 21:49 U Benzodiazepines Scrn Presumptive positive 04/09/19 21:49 Presumptive negative 04/09/19 21:49 U Marijuana (THC) Screen Presumptive negative 04/09/19 21:49 Disclamer 04/09/19 21:49 Plasma/Serum Alcohol < 0.01 % (0-0.07) 04/09/19 20:22 Assessment and Plan Assessment and plan: 64-year-old man with a history of dementia, depression, anxiety, hyperlipidemia, GERD emergency room because he has not been eating and drinking as he normally does as found to have a fever, no source. CT of the head shows possible subdural versus artifact on one slice of the CT head. Agree with plan as discussed above except DC Lovenox, obtain MRI of the head, follow cultures, check cardiac enzymes for elevated troponin, start IV fluid
[2019-04-10] MEDS ORDERED: ZOFRAN IV PRN (00:04)
[2019-04-10 05:07] LABS: Creatine Kinase MB 1.6 ng/mL (0.0-4.0)
[2019-04-10] MEDS ORDERED: ZOSYN/NS 3.375GM/50ML 3.375 GM/50 ML BAG IV SCH (06:00)
[2019-04-10] MEDS: HumuLIN R SUB-Q SCH ×3 (08:00→21:59)
--- NOTE | 2019-04-10 09:20 | Cat Scan Report ---
PROCEDURE: CT HEAD/BRAIN W CON TECHNIQUE: Computerized tomography of the head was performed following the IV injection of iodinated nonionic contrast. CT DOSE LENGTH PRODUCT: 955.4 mGy-cm. HISTORY: ams COMPARISONS: CT head April 09, 2019. FINDINGS: Decreased attenuation regions in the periventricular and subcortical white matter are nonspecific and may represent small vessel ischemic disease, encephalopathy, edema, or a demyelinating process. Smal l vessel ischemic disease (leukoaraiosis) favored. Focal density in the left frontal lobe as seen on the prior is less dense compared to the prior but s table in location and size. Vascular calcifications. There is no evidence for acute ischemia. There is no midline shift. There is no hydrocephalus. There is no mass. Age appropriate ford-white matter attenuation is noted. There is no calvarial fracture. The temporal bones demonstrate aerated mastoid air cells. The middle ears appear unremarkable. Paranasal sinuses are unremarkable. Globes are intact. IMPRESSION: * Chronic ischemic disease. * Focal density in the left frontal lobe is less dense compared to prior but stable in size and loca tion. Findings may represent artifact, meningioma, dural vessel, or hematoma. Hematoma is lower on th e differential. This document is electronically signed by Reymundo Andre MD., Apr 10 2019 09:18:44 AM ET
[2019-04-10] MEDS ORDERED: LOVENOX SUB-Q SCH (10:00)
[2019-04-10] MEDS ORDERED: ZITHROMAX 500 MG in NACL 0.9% 250ML 250 ML IV SCH (10:00)
[2019-04-10] MEDS ORDERED: ROCEPHIN/NS 2 GM/100 ML 2 GM/100 ML BAG IV SCH (10:00)
--- NOTE | 2019-04-10 11:23 | Magnetic Resonance Report ---
PROCEDURE: MR BRAIN WO CON TECHNIQUE: Magnetic resonance imaging of the brain was performed before and after the IV injection o f paramagnetic contrast. COMPARISONS: CT brain April 09 and 2018. FINDINGS: Series 4:10 demonstrates a left frontal extra-axial lesion which is also visualized on series 8:21 me asuring 1.1 x 0.8 cm. There may be some minimal restricted diffusion. Slight decreased signal on the gradient echo sequence but no abnormal signal changes on the T1, T2, or FLAIR sequences. Midline structures are unremarkable. There is no tonsillar ectopy. Age appropriate ford-white matter differentiation is noted. There is no hydrocephalus. There is no midline shift. There is no restricted diffusion to suggest acute ischemia. The CP angles are grossly noted. Major flow voids are present. Paranasal sinuses are unremarkable. Globes are intact. Calvarial signal characteristics are grossly unremarkable. Extracranial soft tissues are intact. IMPRESSION: * Oval or round extra-axial lesion in the left frontal lobe region. Findings may represent meningiom a, tumor, dural vessel, or hematoma. Further evaluation with MRI or CT head with contrast may be help ful if clinically indicated. Coronal and sagittal reconstructed imaging is recommended. This document is electronically signed by Reymundo Andre MD., Apr 10 2019 11:21:12 AM ET
--- NOTE | 2019-04-10 11:53 | XRay Report ---
PROCEDURE: XR CHEST ROUTINE 2V TECHNIQUE: Frontal and lateral chest radiographs. HISTORY: fever COMPARISONS: Chest x-ray from earlier today. FINDINGS: Again seen is mild cardiomegaly. Mild central pulmonary vascular congestion is again seen. Elevation of the left hemidiaphragm is unchanged likely related to eventration. No consolidation. There is mild blunting of the left lateral costophrenic angle as seen on the prior study. No pleural effusion. No pneumothorax. No acute osseous abnormality. IMPRESSION: 1. Mild blunting of the left lateral costophrenic angle likely related to scarring. 2. Mild cardiomegaly and slight pulmonary vascular congestion. This document is electronically signed by Karen Fox., Apr 10 2019 11:51:08 AM ET
--- NOTE | 2019-04-10 12:34 | Progress Note ---
Assessment and Plan Assessment and plan: 64 year old man who was brought in by his family for generalized weakness, not eating complaining of tailbone pain, difficulty walking. It appears that the symptoms have been going on for weeks to months Past medical history: [place] measles causing permanent mental retardation , dementia, damage to Left Brain, history of dementia, anxiety, depression, hyperlipidemia, GERD, kidney failure, hypertension Labs reveal elevated white count of 15, elevated bilirubin 1.7, mildly elevated AST and ALT and alkaline phosphatase a 442 Urine toxicology negative Chest x-ray shows left lower lobe volume loss, mild pulmonary vascular congestion call Alvin suggest to view chest x-ray CT head shows 13 millimeter extra-axial density in the left frontal region. subdural hematoma cannot be excluded Sirs Obtain 2 view chest x-ray, ua neg Dehydration/malnutrition and failure to thrive IV fluids, physical therapy Abnormal CT head Obtain CT with contrast, MRI also ordered Transaminitis Statins on hold, continue IV fluids, check direct Billirubin, ruq sono Type 2 diabetes SSI AFib Rate controlled. Cardiology consult. 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, cont supportive care DVT prophylaxis with scds pending exclusion of subdural hematoma brain History Interval history: Patient had a fever of 102.3 overnight co gen weakness denies vomiting c/o trouble swallowing no cp, no sob Hospitalist Physical - Physical exam Narrative exam: General.: Appears well, no distress, nontoxic HEENT: Moist mucous membranes, extraocular muscles intact, no lymphadenopathy Neck: supple Cardiac: S1-S2 heard Lungs: clear to auscultation bilaterally Abdomen: soft , nontender, nondistended, bowel sounds positive Extremities: no edema clubbing or cyanosis Skin: no rash or lesions Neurologic: no gross focal deficits, generalized weakness Psych: calm, and cooperative - Constitutional Vitals: Temp Pulse Resp BP Pulse Ox 97.6 F 70 18 90/58 100 04/10/19 07:29 04/10/19 07:29 04/10/19 07:29 04/10/19 07:29 04/10/19 07:29 General appearance: Present: no acute distress Results - Labs CBC & Chem 7: 04/10/19 12:31 04/10/19 12:31 Labs: Laboratory Last Values WBC 15.4 K/mm3 (4.5-11.0) H 04/09/19 20:22 RBC 5.36 M/mm3 (3.65-5.03) H 04/09/19 20:22 Hgb 16.9 gm/dl (11.8-15.2) H 04/09/19 20:22 Hct 49.5 % (35.5-45.6) H 04/09/19 20:22 MCV 93 fl (84-94) 04/09/19 20:22 MCH 32 pg (28-32) 04/09/19 20: MCHC 34 % (32-34) 04/09/19 20:22 RDW 13.5 % (13.2-15.2) 04/09/19 20:22 Plt Count 329 K/mm3 (140-440) 04/09/19 20:22 Lymph % (Auto) 6.0 % (13.4-35.0) L 04/09/19 20:22 [place] % (Auto) 4.4 % (0.0-7.3) 04/09/19 20: Eos % (Auto) 0.1 % (0.0-4.3) 04/09/19 20: Baso % (Auto) 0.5 % (0.0-1.8) 04/09/19 20: Lymph # 0.9 K/mm3 (1.2-5.4) L 04/09/19 20: [place] # 0.7 K/mm3 (0.0-0.8) 04/09/19 20: Eos # 0.0 K/mm3 (0.0-0.4) 04/09/19 20: Baso # 0.1 K/mm3 (0.0-0.1) 04/09/19 20:22 Seg Neutrophils % 89.0 % (40.0-70.0) H 04/09/19 20: Seg Neutrophils # 13.7 K/mm3 (1.8-7.7) H 04/09/19 20:22 PT 12.8 Sec. (12.2-14.9) 04/09/19 20: INR 0.91 (0.87-1.13) 04/09/19 20:22 Sodium 130 mmol/L (137-145) L 04/09/19 20:22 Potassium 4.9 mmol/L (3.6-5.0) 04/09/19 20:22 Chloride 92.6 mmol/L (98-107) L 04/09/19 20:22 Carbon Dioxide 24 mmol/L (22-30) 04/09/19 20:22 18 mmol/L 04/09/19 20:22 BUN 13 mg/dL (9-20) 04/09/19 20:22 1.2 mg/dL (0.8-1.5) 04/09/19 20:22 Estimated GFR > 60 ml/min 04/09/19 20:22 11 % 04/09/19 20:22 Glucose 186 mg/dL (75-100) H 04/09/19 20:22 POC Glucose 97 (70-105) 04/10/19 11:38 Lactic Acid 1.80 mmol/L (0.7-2.0) 04/09/19 20:22 Calcium 8.4 mg/dL (8.4-10.2) 04/09/19 20:22 1.70 mg/dL (0.1-1.2) H 04/09/19 20:22 AST 121 units/L (5-40) H 04/09/19 20:22 ALT 85 units/L (7-56) H 04/09/19 20:22 442 units/L (35-129) H 04/09/19 20:22 26.0 umol/L (25-60) 04/10/19 04:06 26 units/L (55-170) L 04/10/19 04:06 CK-MB (CK-2) 1.6 ng/mL (0.0-4.0) 04/10/19 04:06 CK-MB (CK-2) Rel Index 6.1 (0-4) H 04/10/19 04:06 < 0.010 ng/mL (0.00-0.029) 04/10/19 04:06 6.9 g/dL (6.3-8.2) 04/09/19 20:22 3.6 g/dL (3.9-5) L 04/09/19 20:22 1.1 % 04/09/19 20:22 Triglycerides 120 mg/dL (2-149) 04/09/19 20:22 Cholesterol 179 mg/dL (50-199) 04/09/19 20:22 115 mg/dL (50-130) 04/09/19 20:22 56 mg/dL (40-59) 04/09/19 20:22 3.19 % 04/09/19 20:22 TSH 1.160 mlU/mL (0.270-4.200) 04/09/19 20:22 Katie (Yellow) 04/09/19 21:49 Clear (Clear) 04/09/19 21:49 6.0 (5.0-7.0) 04/09/19 21:49 Ur Specific [place] 1.016 (1.003-1.030) 04/09/19 21:49 <15 mg/dl mg/dL (Negative) 04/09/19 21:49 Neg mg/dL (Negative) 04/09/19 21:49 Neg mg/dL (Negative) 04/09/19 21:49 Neg (Negative) 04/09/19 21:49 Neg (Negative) 04/09/19 21:49 Neg (Negative) 04/09/19 21:49 4.0 mg/dL (<2.0) 04/09/19 21:49 Ur Leukocyte Esterase Neg (Negative) 04/09/19 21:49 2.0 /HPF (0.0-6.0) 04/09/19 21:49 1.0 /HPF (0.0-6.0) 04/09/19 21:49 U Epithel Cells (Auto) < 1.0 /HPF (0-13.0) 04/09/19 21:49 Few /HPF 04/09/19 21:49 Salicylates < 0.3 mg/dL (2.8-20.0) L 04/09/19 20:22 Presumptive negative 04/09/19 21:49 Presumptive negative 04/09/19 21:49 Acetaminophen < 5.0 ug/mL (10.0-30.0) L 04/09/19 20:22 Ur Barbiturates Screen Presumptive negative 04/09/19 21:49 Ur Phencyclidine Scrn Presumptive negative 04/09/19 21:49 Ur Amphetamines Screen Presumptive negative 04/09/19 21:49 U Benzodiazepines Scrn Presumptive positive 04/09/19 21:49 Presumptive negative 04/09/19 21:49 U Marijuana (THC) Screen Presumptive negative 04/09/19 21:49 Disclamer 04/09/19 21:49 Plasma/Serum Alcohol < 0.01 % (0-0.07) 04/09/19 20:22 Active Medications - Current Medications Current Medications: Generic Name Dose Route Start Last Admin Trade Name Freq PRN Reason Stop Dose Admin Alprazolam 1 mg 04/10/19 06:25 Xanax PO TID PRN Anxiety Docusate Sodium 100 mg 04/10/19 10:00 Colace PO BID MARIUSZ Sodium Chloride 1,000 mls @ 125 mls/hr 04/10/19 10:00 Nacl 0.9% 1000 Ml IV DIRECT MARIUSZ Azithromycin 500 mg/ Sodium 250 mls @ 250 mls/hr 04/10/19 10:00 Chloride IV Q24HR MARIUSZ Ceftriaxone Sodium 1 gm in 50 mls @ 100 mls/hr 04/10/19 10:00 Rocephin/Ns 1 Gm/50 Ml IV Q24HR [facility] Protocol Insulin Human Regular 0 units 04/10/19 07:30 04/10/19 12:29 Humulin R SUB-Q Not Given ACHS [facility] Protocol Ondansetron HCl 4 mg 04/10/19 00:04 Zofran IV Q8H PRN Nausea And Vomiting Oxycodone/Acetaminophen 1 tab 04/10/19 00:04 Percocet 5/325 PO Q6H PRN Pain, Moderate (4-6) Sodium Chloride 10 ml 04/10/19 10:00 Sodium Chloride Flush Syringe 10 Ml IV BID MARIUSZ Nutrition/Malnutrition Assess - Dietary Evaluation Nutrition/Malnutrition Findings: Nutrition Notes Start: 04/10/19 10:07 Freq: Status: Active Protocol: Document 04/10/19 10:07 RD (Rec: 04/10/19 10:30 RD [id number]) Co-Sign 04/10/19 10:07 RM Nutrition Notes Need for Assessment generated from: MD Order Initial or Follow up Brief Note Current Diagnosis CKD(stage I-IV),Hyperlipidemia Other Pertinent Diagnosis GERD, AMS, Brain Damage Current Diet Cardiac diet Subjective/Other Information RD screen for malnutrition. Pt not in room at time of visit. No family present in room. Nutrition Intervention Follow-Up By: 04/11/19 Additional Comments f/u: malnutrition assessment
[2019-04-10] MEDS: NACL 0.9% 1000 ML 1,000 ML IV SCH ×2 (12:50→21:57)
[2019-04-10] MEDS: ROCEPHIN/NS 1 GM/50 ML 1 GM/50 ML BAG IV SCH (12:51)
[2019-04-10] MEDS: ZITHROMAX 500 MG in NACL 0.9% 250ML 250 ML IV SCH (12:51)
[2019-04-10] MEDS: SODIUM CHLORIDE FLUSH SYRINGE 10 ML IV SCH ×2 (12:52→21:58)
[2019-04-10] MEDS: COLACE PO SCH ×2 (12:54→21:57)
[2019-04-10 13:05] LABS: Basophils % (Auto) 0.6 % (0.0-1.8); Eosinophils # (Auto) 0.1 K/mm3 (0.0-0.4); Eosinophils % (Auto) 1.4 % (0.0-4.3); Hematocrit 45.2 % (35.5-45.6); Hemoglobin 15.2 gm/dl (11.8-15.2); Lymphocytes % (Auto) 28.5 % (13.4-35.0); Mean Corpuscular HGB Conc 34 % (32-34); Mean Corpuscular Volume 94 fl (84-94); Monocytes # (Auto) 0.5 K/mm3 (0.0-0.8); Monocytes % (Auto) 6.8 % (0.0-7.3); Platelet Count 269 K/mm3 (140-440); Red Blood Count 4.82 M/mm3 (3.65-5.03); Red Cell Distribution Width 13.7 % (13.2-15.2)
[2019-04-10 13:09] LABS: Alanine Aminotransferase 64 units/L (7-56); Albumin 3.1 g/dL (3.9-5); BUN/Creatinine Ratio 12; Bilirubin,Direct 0.6 mg/dL (0-0.2); Blood Urea Nitrogen 11 mg/dL (9-20); Calcium 8.7 mg/dL (8.4-10.2); Hemolysis Index 7
--- NOTE | 2019-04-10 16:45 | Ultrasound Report ---
PROCEDURE: US ABDOMEN LIMITED TECHNIQUE: Transverse longitudinal sonograms obtained right upper quadrant HISTORY: transaminitis COMPARISONS: None FINDINGS: Visualized liver appears unremarkable. Gallbladder demonstrates sludge. Nodular focus measuring 4.4 x 2.4 x 3.7 cm. Hyperechoic rim. Hypoech oic internally. No shadowing. Probable sludge ball. Extrahepatic biliary dilatation. Common bile duct measures 1 cm. Right kidney measures 9.0 x 5.3 x 4.7 cm. Normal cortical thickness and echogenicity. No hydronephros is. Pancreas not well-visualized Aorta measures up to 2.7 cm. Mild ectasia. No free fluid IMPRESSION: Gallbladder demonstrates sludge and sludge ball. No cholelithiasis identified. No sonographic evidenc e of acute cholecystitis Extrahepatic biliary dilatation. Clinical correlation. If further evaluation warranted, MRCP recommen ded No right hydronephrosis No free fluid Mild ectasia of the aorta.. This document is electronically signed by Cal Santos MD., Apr 10 2019 04:42:48 PM ET
[2019-04-10] MEDS: MIRALAX 3350 PO SCH (21:57)
[2019-04-10] MEDS ORDERED: NON-FORMULARY (Rosuvastatin Calcium [Crestor] 40 MG) PO SCH (22:00)
[2019-04-11] MEDS: NACL 0.9% 1000 ML 1,000 ML IV SCH ×2 (05:28→15:17)
[2019-04-11] MEDS: HumuLIN R SUB-Q SCH ×4 (07:20→22:30)
[2019-04-11] MEDS: COLACE PO SCH ×2 (08:59→21:12)
[2019-04-11] MEDS: ROCEPHIN/NS 1 GM/50 ML 1 GM/50 ML BAG IV SCH (08:59)
[2019-04-11] MEDS: MIRALAX 3350 PO SCH (08:59)
[2019-04-11] MEDS: SODIUM CHLORIDE FLUSH SYRINGE 10 ML IV SCH ×2 (08:59→22:30)
[2019-04-11] MEDS: ZITHROMAX 500 MG in NACL 0.9% 250ML 250 ML IV SCH (09:35)
[2019-04-11] MEDS: PERCOCET 5/325 PO PRN (14:12)
--- NOTE | 2019-04-11 14:21 | Consultation ---
History of Present Illness Consult date: 04/11/19 Consult reason: atrial fibrillation History of present illness: The patient is a 64-year-old man who lives in a long term. He was brought to the emergency room for generalized pain, altered mental status, nonspecific constitutional symptoms and a fever 102F. Laboratory values show a mild to moderate elevation of the liver transaminases. Fever workup is in progress. A head CT and brain MRI both revealed a frontal lobe lesion of uncertain etiology. Cardiology consultation is requested for the finding of atrial fibrillation. On presentation, he was found with atrial fibrillation, well-controlled ventricular response. I reviewed his prior ECG in the record from January 2016, at that time he was stable sinus rhythm. The patient is a historian, unable to articulate details of any prior cardiac evaluation or prior cardiac workup. Currently does not take any AV sony blocking agents all oral anticoagulation, no suggestion of prior atrial fibrillation on review of his current medications. At this time, the patient is comfortably in his room, denies chest pain, no shortness of breath, no palpitations, no lower extremity edema. Past History Past Medical History: hypertension, hyperlipidemia, other (metabolic encephalopathy) Past Surgical History: No surgical history Social history: no significant social history, lives with family Family history: no significant family history Medications and Allergies Allergies Allergy/AdvReac Type Severity Reaction Status Date / Time No Known Allergies Allergy Unverified 02/02/16 11:34 Home Medications Medication Instructions Recorded Confirmed Last Taken Type ALPRAZolam [Xanax TAB] 1 mg PO TID PRN #20 tablet 02/02/16 04/10/19 Unknown Rx Oxycodone HCl/Acetaminophen 1 tab PO Q6H 02/02/16 04/10/19 Unknown History [Percocet 10/325 mg] Rosuvastatin Calcium [Crestor] 40 mg PO QHS 02/02/16 04/10/19 Unknown History guaiFENesin/DEXTROMETHORPHAN 1 tab PO BID 02/02/16 04/10/19 Unknown History [Mucinex Dm ER 1,200-60 mg Tab] methOCARBAMOL [Robaxin TAB] 500 mg PO Q6H PRN 02/02/16 04/10/19 Unknown History Active Meds: Active Medications Alprazolam (Xanax) 1 mg PO TID PRN PRN Reason: Anxiety Docusate Sodium (Colace) 100 mg PO BID [facility] Last Admin: 04/11/19 08:59 Dose: 100 mg Documented by: Sodium Chloride (Nacl 0.9% 1000 Ml) 1,000 mls @ 125 mls/hr IV DIRECT [facility] Last Admin: 04/11/19 05:28 Dose: 125 mls/hr Documented by: Azithromycin 500 mg/ Sodium (Chloride) 250 mls @ 250 mls/hr IV Q24HR [facility] Last Admin: 04/11/19 09:35 Dose: 250 mls/hr Documented by: Ceftriaxone Sodium (Rocephin/Ns 1 Gm/50 Ml) 1 gm in 50 mls @ 100 mls/hr IV Q24HR [facility]; Protocol Last Admin: 04/11/19 08:59 Dose: 100 mls/hr Documented by: Insulin Human Regular (Humulin R) 0 units SUB-Q ACHS [facility]; Protocol Last Admin: 04/11/19 11:25 Dose: Not Given Documented by: Ondansetron HCl (Zofran) 4 mg IV Q8H PRN PRN Reason: Nausea And Vomiting Oxycodone/Acetaminophen (Percocet 5/325) 1 tab PO Q6H PRN PRN Reason: Pain, Moderate (4-6) Last Admin: 04/11/19 14:12 Dose: 1 tab Documented by: Polyethylene Glycol (Miralax [id number]) 17 gm PO QDAY [facility] Last Admin: 04/11/19 08:59 Dose: 17 gm Documented by: Sodium Chloride (Sodium Chloride Flush Syringe 10 Ml) 10 ml IV BID [facility] Last Admin: 04/11/19 08:59 Dose: 10 ml Documented by: Review of Systems ROS unobtainable: due to mental status Cardiovascular: no chest pain, no orthopnea, no palpitations, no rapid/irregular heart beat, no edema, no syncope, no lightheadedness, no shortness of breath Physical Examination Vital Signs Temp Pulse Resp BP Pulse Ox 102.3 F H 140 H 20 119/80 100 04/09/19 19:59 04/09/19 19:59 04/09/19 19:59 04/09/19 19:59 04/09/19 19:59 General appearance: no acute distress HEENT: Positive: PERRL Neck: Positive: neck supple Cardiac: Positive: irregularly irregular Lungs: Positive: Decreased Breath Sounds Neuro: Positive: Grossly Intact, Cranial Nerve 2-12 Intact Abdomen: Positive: Soft Male genitourinary: Positive: deferred Skin: Positive: Clear Extremities: Absent: edema Results 04/10/19 12:31 04/10/19 12:31 EKG interpretations - Telemetry EKG Rhythm: Atrial Fibrillation Assessment and Plan - Patient Problems (1) Atrial fibrillation Current Visit: Yes Status: Acute Plan to address problem: Patient presents to the hospital with an acute febrile illness, and is found with asymptomatic atrial fibrillation of uncertain chronicity. The last evidence we have of sinus rhythm was January 2016. His atrial fibrillation has a well-controlled ventricular rate, in the absence of AV sony blocking agents. Recommendations: Echocardiogram for left ventricular function assessment, and assessment of left atrial size. Close monitoring of atrial fibrillation rate, avoid aggressive use of AV sony blocking agents. The patient will also not be a candidate for oral anticoagulation and in the setting of a frontal lobe mass of undefined etiology. Conservative cardiac management.
[2019-04-11] MEDS: XANAX PO PRN (16:49)
[2019-04-12] MEDS: NACL 0.9% 1000 ML 1,000 ML IV SCH ×2 (03:49→16:03)
[2019-04-12] MEDS: PERCOCET 5/325 PO PRN ×3 (04:17→15:39)
--- NOTE | 2019-04-12 07:37 | Progress Note ---
Assessment and Plan Assessment and plan: 64 year old man who was brought in by his family for generalized weakness, not eating complaining of tailbone pain, difficulty walking. 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 subdural hematoma cannot be excluded Sirs Obtain 2 view chest x-ray, ua neg Dehydration/malnutrition and failure to thrive IV fluids, physical therapy Abnormal CT head most likely old lesion, MRI also ordered Transaminitis Statins on hold, continue IV fluids, check direct Billirubin, ruq sono Type 2 diabetes SSI AFib Rate controlled. Cardiology consult appreciated FFT/moderate malnutrition PT, OT and ST consult, senior application security consultant consult, cont supportive care DVT prophylaxis with scds pending exclusion of subdural hematoma brain History Interval history: no fever co gen weakness denies vomiting c/o trouble swallowing no cp, no sob Hospitalist Physical - Physical exam Narrative exam: General.: Appears well, no distress, nontoxic HEENT: Moist mucous membranes, extraocular muscles intact, no lymphadenopathy Neck: supple Cardiac: S1-S2 heard Lungs: clear to auscultation bilaterally Abdomen: soft , nontender, nondistended, bowel sounds positive Extremities: no edema clubbing or cyanosis Skin: no rash or lesions Neurologic: no gross focal deficits, generalized weakness Psych: calm, and cooperative - Constitutional Vitals: Temp Pulse Resp BP Pulse Ox 97.6 F 67 18 141/82 99 04/12/19 02:18 04/12/19 02:18 04/12/19 02:18 04/12/19 02:18 04/12/19 02:18 General appearance: Present: no acute distress Results - Labs CBC & Chem 7: 04/10/19 12:31 04/10/19 12:31 Labs: Laboratory Last Values WBC 7.0 K/mm3 (4.5-11.0) 04/10/19 12:31 RBC 4.82 M/mm3 (3.65-5.03) 04/10/19 12:31 Hgb 15.2 gm/dl (11.8-15.2) 04/10/19 12:31 Hct 45.2 % (35.5-45.6) 04/10/19 12:31 MCV 94 fl (84-94) 04/10/19 12:31 MCH 32 pg (28-32) 04/10/19 12:31 MCHC 34 % (32-34) 04/10/19 12:31 RDW 13.7 % (13.2-15.2) 04/10/19 12:31 Plt Count 269 K/mm3 (140-440) 04/10/19 12:31 Lymph % (Auto) 28.5 % (13.4-35.0) 04/10/19 12:31 Randall % (Auto) 6.8 % (0.0-7.3) 04/10/19 12:31 Eos % (Auto) 1.4 % (0.0-4.3) 04/10/19 12:31 Baso % (Auto) 0.6 % (0.0-1.8) 04/10/19 12:31 Lymph # 2.0 K/mm3 (1.2-5.4) 04/10/19 12:31 Randall # 0.5 K/mm3 (0.0-0.8) 04/10/19 12:31 Eos # 0.1 K/mm3 (0.0-0.4) 04/10/19 12:31 Baso # 0.0 K/mm3 (0.0-0.1) 04/10/19 12:31 Seg Neutrophils % 62.7 % (40.0-70.0) 04/10/19 12:31 Seg Neutrophils # 4.4 K/mm3 (1.8-7.7) 04/10/19 12:31 PT 12.8 Sec. (12.2-14.9) 04/09/19 20:22 INR 0.91 (0.87-1.13) 04/09/19 20:22 Sodium 139 mmol/L (137-145) D 04/10/19 12:31 Potassium 4.5 mmol/L (3.6-5.0) 04/10/19 12:31 Chloride 102.6 mmol/L (98-107) 04/10/19 12:31 Carbon Dioxide 25 mmol/L (22-30) 04/10/19 12:31 16 mmol/L 04/10/19 12:31 BUN 11 mg/dL (9-20) 04/10/19 12:31 0.9 mg/dL (0.8-1.5) 04/10/19 12:31 Estimated GFR > 60 ml/min 04/10/19 12:31 12 % 04/10/19 12:31 Glucose 150 mg/dL (75-100) H 04/10/19 12:31 POC Glucose 138 (70-105) H 04/11/19 21:21 Lactic Acid 1.80 mmol/L (0.7-2.0) 04/09/19 20:22 Calcium 8.7 mg/dL (8.4-10.2) 04/10/19 12:31 1.20 mg/dL (0.1-1.2) 04/10/19 12:31 0.6 mg/dL (0-0.2) H 04/10/19 12:31 0.6 mg/dL 04/10/19 12:31 AST 61 units/L (5-40) H 04/10/19 12:31 ALT 64 units/L (7-56) H 04/10/19 12:31 342 units/L (35-129) H 04/10/19 12:31 26.0 umol/L (25-60) 04/10/19 04:06 25 units/L (55-170) L 04/10/19 12:31 CK-MB (CK-2) 2.0 ng/mL (0.0-4.0) 04/10/19 12:31 CK-MB (CK-2) Rel Index 8.0 (0-4) H 04/10/19 12:31 < 0.010 ng/mL (0.00-0.029) 04/10/19 12:31 6.2 g/dL (6.3-8.2) L 04/10/19 12:31 3.1 g/dL (3.9-5) L 04/10/19 12:31 1.0 % 04/10/19 12:31 Triglycerides 120 mg/dL (2-149) 04/09/19 20:22 Cholesterol 179 mg/dL (50-199) 04/09/19 20:22 115 mg/dL (50-130) 04/09/19 20:22 56 mg/dL (40-59) 04/09/19 20:22 3.19 % 04/09/19 20:22 TSH 1.160 mlU/mL (0.270-4.200) 04/09/19 20:22 Katie (Yellow) 04/09/19 21:49 Clear (Clear) 04/09/19 21:49 6.0 (5.0-7.0) 04/09/19 21:49 Ur Specific [employer] 1.016 (1.003-1.030) 04/09/19 21:49 <15 mg/dl mg/dL (Negative) 04/09/19 21:49 Neg mg/dL (Negative) 04/09/19 21:49 Neg mg/dL (Negative) 04/09/19 21:49 Neg (Negative) 04/09/19 21:49 Neg (Negative) 04/09/19 21:49 Neg (Negative) 04/09/19 21:49 4.0 mg/dL (<2.0) 04/09/19 21:49 Ur Leukocyte Esterase Neg (Negative) 04/09/19 21:49 2.0 /HPF (0.0-6.0) 04/09/19 21:49 1.0 /HPF (0.0-6.0) 04/09/19 21:49 U Epithel Cells (Auto) < 1.0 /HPF (0-13.0) 04/09/19 21:49 Few /HPF 04/09/19 21:49 Salicylates < 0.3 mg/dL (2.8-20.0) L 04/09/19 20:22 Presumptive negative 04/09/19 21:49 Presumptive negative 04/09/19 21:49 Acetaminophen < 5.0 ug/mL (10.0-30.0) L 04/09/19 20:22 Ur Barbiturates Screen Presumptive negative 04/09/19 21:49 Ur Phencyclidine Scrn Presumptive negative 04/09/19 21:49 Ur Amphetamines Screen Presumptive negative 04/09/19 21:49 U Benzodiazepines Scrn Presumptive positive 04/09/19 21:49 Presumptive negative 04/09/19 21:49 U Marijuana (THC) Screen Presumptive negative 04/09/19 21:49 Disclamer 04/09/19 21:49 Plasma/Serum Alcohol < 0.01 % (0-0.07) 04/09/19 20:22 Active Medications - Current Medications Current Medications: Generic Name Dose Route Start Last Admin Trade Name Freq PRN Reason Stop Dose Admin Alprazolam 1 mg 04/10/19 06:25 04/11/19 16:49 Xanax PO 1 mg TID PRN Administration Anxiety Docusate Sodium 100 mg 04/10/19 10:00 04/11/19 21:12 Colace PO Not Given BID [facility] Sodium Chloride 1,000 mls @ 125 mls/hr 04/10/19 10:00 04/12/19 03:49 Nacl 0.9% 1000 Ml IV 125 mls/hr DIRECT [facility] Administration Azithromycin 500 mg/ Sodium 250 mls @ 250 mls/hr 04/10/19 10:00 04/11/19 09:35 Chloride IV 250 mls/hr Q24HR [facility] Administration Ceftriaxone Sodium 1 gm in 50 mls @ 100 mls/hr 04/10/19 10:00 04/11/19 08:59 Rocephin/Ns 1 Gm/50 Ml IV 100 mls/hr Q24HR [facility] Administration Protocol Insulin Human Regular 0 units 04/10/19 07:30 04/11/19 22:30 Humulin R SUB-Q Not Given ACHS [facility] Protocol Ondansetron HCl 4 mg 04/10/19 00:04 Zofran IV Q8H PRN Nausea And Vomiting Oxycodone/Acetaminophen 1 tab 04/10/19 00:04 04/12/19 04:17 Percocet 5/325 PO 1 tab Q6H PRN Administration Pain, Moderate (4-6) Polyethylene Glycol 17 gm 04/10/19 21:00 04/11/19 08:59 Miralax 3350 PO 17 gm QDAY [facility] Administration Sodium Chloride 10 ml 04/10/19 10:00 04/11/19 22:30 Sodium Chloride Flush Syringe 10 Ml IV 10 ml BID [facility] Administration Nutrition/Malnutrition Assess - Dietary Evaluation Nutrition/Malnutrition Findings: Nutrition Notes Start: 04/10/19 10:07 Freq: Status: Active Protocol: Document 04/11/19 14:39 RM (Rec: 04/11/19 14:52 RM [id number]) Nutrition Notes Initial or Follow up Assessment Current Diagnosis CKD(stage I-IV),Diabetes, Hyperlipidemia Other Pertinent Diagnosis GERD, Mental retardation, Anxiety, Dementia Current Diet Cardiac Labs/Tests Reviewed Pertinent Medications Reviewed Height 5 ft 10 in Weight 86.4 kg Usual Body Weight 86.36 kg [place] Body Weight (kg) 75.45 BMI 27.3 Subjective/Other Information 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 Stated that his appetite is good and that he eats 50% of his meals. Admitted to some chewing difficulty d/t missing teeth. Stated UBW was 190 lbs 2 months ago. No temporal or orbital wasting . Percent of energy/protein needs met: 49%/48% Burn Absent Trauma Absent #1 Nutrition Diagnosis Inadequate oral intake Etiology chewing difficulty As Evidenced by Signs and Symptoms pt statement that he eats 50% of his meals Is patient on ventilator? No Is Patient Ambulatory and/or Out of Bed Yes REE-([facility]-ambulatory/OOB) [ 2151.825 NUTR.[id number]] Calculation Used for Recommendations [facility] Additional Notes Protein Needs: 86-104g (1-1.2g /kg) Fluid Needs: 1 ml/kcal Nutrition Intervention Change Diet Order: Cardiac, Mech soft w/ground meat Add Supplement/Snack (indicate name/kcal Glucerna [place] 1 daily /protein ) Provides kCal: 220 Provides Protein (gm) 10 Goal #1 Meet at least 75% of calorie and protein needs via PO and ONS intakes Anticipated Discharge Needs: Cardiac diet Follow-Up By: 04/14/19 Additional Comments Follow for PO and ONS intakes
[2019-04-12] MEDS: HumuLIN R SUB-Q SCH ×3 (08:02→16:12)
[2019-04-12] MEDS: ZITHROMAX 500 MG in NACL 0.9% 250ML 250 ML IV SCH (09:35)
[2019-04-12] MEDS: ROCEPHIN/NS 1 GM/50 ML 1 GM/50 ML BAG IV SCH (09:35)
[2019-04-12] MEDS: XANAX PO PRN ×2 (09:42→15:40)
--- NOTE | 2019-04-12 09:46 | Progress Note ---
Assessment and Plan Generalized pain Altered mental status head CT and brain MRI both revealed a frontal lobe lesion of uncertain etiology. Fever Elevation of the liver transaminases Atrial fibrillation of uncertain chronicity well-controlled ventricular rate, in the absence of AV sony blocking agents. Recommendations: Echocardiogram for left ventricular function assessment. Continue telemetry monitoring of atrial fibrillation rate. Avoid aggressive use of AV sony blocking agents. Patient considered not be a candidate for oral anticoagulation in the setting of a frontal lobe mass of undefined etiology. Otherwise, conservative cardiac management. Subjective Date of service: 04/12/19 Interval history: Patient has no cardiac complaints. Afib with a well controlled ventricular rate on telemetry Objective Vital Signs Temp Pulse Resp BP BP Pulse Ox 04/12/19 07:08 97.9 F 73 18 139/80 99 04/12/19 02:18 97.6 F 67 18 141/82 99 04/11/19 23:57 57 L 04/11/19 19:27 98.0 F 66 18 89/63 100 04/11/19 19:24 98.0 F 74 18 98 04/11/19 15:00 97 04/11/19 13:42 98.0 F 84 18 117/87 100 04/11/19 09:51 83 - Physical Examination General: No Apparent Distress HEENT: Positive: PERRL Neck: Positive: neck supple Cardiac: Positive: irregularly irregular Lungs: Positive: Decreased Breath Sounds Neuro: Positive: Grossly Intact, Cranial Nerve 2-12 Intact Extremities: Absent: edema
[2019-04-12] MEDS ORDERED: LOVENOX SUB-Q STA (16:10)
[2019-04-12] MEDS ORDERED: LASIX IV ONE (16:13)
[2019-04-12] MEDS ORDERED: CARDIZEM IV ONE (16:13)
[2019-04-12] MEDS ORDERED: CORDARONE 150 MG in D5W 100 ML IV ONE (16:25)
[2019-04-12] MEDS: MIRALAX 3350 PO SCH (16:59)
[2019-04-12] MEDS: COLACE PO SCH (16:59)
[2019-04-12] MEDS: SODIUM CHLORIDE FLUSH SYRINGE 10 ML IV SCH ×2 (17:00→22:50)
--- NOTE | 2019-04-12 17:00 | Event Note ---
Date: 04/12/19 Code Met called. 12 lead EKG -wide complex tachycardia 160. Patient on BIPAP, sat 98%, anxious and while not confused repeatedly trying to remove BIPAP mask and asking for fluids. EKG transmitted to cardiology, Amiodarone ordered and patient transferred to ICU for further monitoring. All monitoring physician notified.
[2019-04-12] MEDS: CORDARONE 900 MG in D5W 482 ML IV SCH (17:08)
--- NOTE | 2019-04-12 17:45 | XRay Report ---
PROCEDURE: XR CHEST 1V AP TECHNIQUE: Chest radiograph single view. HISTORY: sob COMPARISONS: Chest x-ray April 10, 2019 . FINDINGS: Trachea midline. Mild cardiomegaly stable. No pneumothorax. No sizable effusion. Interstitial prominence stable. No new airspace disease. Left h emidiaphragm no longer elevated. No acute bony abnormality IMPRESSION: Left hemidiaphragm no longer elevated No new airspace disease or effusion. This document is electronically signed by Cal Santos MD., Apr 12 2019 05:43:30 PM ET
[2019-04-12] MEDS ORDERED: CORDARONE IV ONE (20:37)
[2019-04-12] MEDS ORDERED: ATIVAN IV ONE (21:15)
--- NOTE | 2019-04-12 22:40 | Cat Scan Report ---
PROCEDURE: CT ANGIO CHEST TECHNIQUE: Computerized tomographic angiography of the chest was performed after the IV injection of iodinated nonionic contrast including image processing. The image data was postprocessed using 2-di mensional multiplanar reformatted (MPR) and 3-dimensional (MIP and/or volume rendered) techniques. Au tomated exposure control, adjustment of mA and/or kV according to patient size, or iterative reconstr uction dose optimization techniques were utilized. CT DOSE LENGTH PRODUCT: 726.5 mGycm HISTORY: sob COMPARISONS: None . FINDINGS: Irregular areas of consolidation are noted involving bilateral upper and lower lobes and right middle lobe. Mild degree bilateral pleural effusions are noted. Hilar structures are within normal limits. There is no lymphadenopathy. Left lung Demonstrates an ill-defined hypodense lesion measuring 2.5 cm. Aorta is of normal caliber. Bilateral pulmonary arteries and their branches demonstrate normal opacification without filling defects. Coron vladimir arterial calcification is identified. Vertebral height is normal. IMPRESSION: No evidence of pulmonary embolism Bilateral consolidations are consistent with bilateral pneumonia. Mild degree of bilateral pleural effusions Coronary arterial calcification Left lobe thyroid nodule. Ultrasound evaluation is recommended. This document is electronically signed by Theo Aguilar MD., Apr 12 2019 10:38:33 PM ET
[2019-04-13] MEDS: COLACE PO SCH ×3 (00:59→21:06)
[2019-04-13] MEDS: HumuLIN R SUB-Q SCH ×5 (00:59→21:07)
--- NOTE | 2019-04-13 03:48 | Event Note ---
Date: 04/12/19 RN called as patient was tachycardic and hypoxic S; co sob, and palpiations O: anxious, Diminished breath sounds tachycardic and hypoxic appears ill EKG; wide complex tachycardia A/P acute hypoxic resp failure oxygen supplement; trial of lasix, dc IVF, started on lovenox until PE can be ruled out, fup CTA chest -amiodarone drip per cardiology recommendation - findings on Brain MRI are most likely chronic and do not represent hematoma - transfer to ICU CCT 33 minutes
[2019-04-13] MEDS: MIRALAX 3350 PO SCH (10:01)
[2019-04-13] MEDS: ROCEPHIN/NS 1 GM/50 ML 1 GM/50 ML BAG IV SCH (10:01)
[2019-04-13] MEDS: ZITHROMAX 500 MG in NACL 0.9% 250ML 250 ML IV SCH (10:04)
--- NOTE | 2019-04-13 10:33 | Progress Note ---
Assessment and Plan Acute respiratory failure no evidence of PE via chest CTA Generalized pain Altered mental status head CT and brain MRI both revealed a frontal lobe lesion of uncertain etiology. Fever Elevation of the liver transaminases Atrial fibrillation of uncertain chronicity well-controlled ventricular rate. Recommendations: Echocardiogram for left ventricular function assessment. Patient considered not be a candidate for oral anticoagulation in the setting of a frontal lobe mass of undefined etiology. Subjective Date of service: 04/13/19 Interval history: Patient is resting in bed comfortably with complaints of arm pain. He denies shortness of breath, chest pain and palpitations. Afib with a well controlled ventricular rate on telemetry. Objective Vital Signs Temp Pulse Pulse Resp BP BP Pulse Ox 04/13/19 09:47 99 04/13/19 08:21 70 18 122/76 100 04/13/19 08:11 65 18 122/76 100 04/13/19 08:00 97.9 F 71 17 122/76 100 04/13/19 07:51 61 18 131/82 100 04/13/19 07:41 64 20 131/82 100 04/13/19 07:31 67 19 131/82 100 04/13/19 07:21 67 19 131/82 100 04/13/19 07:11 69 22 128/80 100 04/13/19 07:00 65 19 128/80 100 04/13/19 06:51 58 L 19 131/82 100 04/13/19 06:41 63 20 131/82 100 04/13/19 06:31 65 17 131/82 100 04/13/19 06:21 67 20 131/82 100 04/13/19 06:10 73 19 131/82 100 04/13/19 06:00 65 20 131/82 100 04/13/19 05:51 62 20 133/82 100 04/13/19 05:41 66 21 133/82 100 04/13/19 05:31 76 17 133/82 100 04/13/19 05:21 71 22 133/82 99 04/13/19 05:11 74 21 133/82 100 04/13/19 05:00 72 22 133/82 100 04/13/19 04:51 72 19 130/83 100 04/13/19 04:41 78 17 130/83 100 04/13/19 04:31 66 20 130/83 100 05/21/19 04:21 71 20 130/83 100 05 04:11 66 19 130/83 100 05 04:00 69 68 19 130/83 100 05 03:51 69 20 147/85 100 05 03:49 97.6 F 04/13/19 03:41 64 18 147/85 100 05 03:31 69 19 147/85 99 05 03:21 97.6 F 68 19 147/85 100 05 03:11 70 19 147/85 100 05 03:01 76 21 147/85 100 05 02:51 73 16 122/84 99 05 02:41 79 16 122/84 100 05 02:31 75 17 127/86 100 05 02:21 64 18 127/86 100 04/13/19 02:11 73 17 127/86 99 05 02:00 74 14 122/84 100 05 01:51 69 18 127/86 99 05 01:41 69 20 127/86 100 04/13/19 01:31 66 19 127/86 99 05 01:21 76 19 127/86 100 05 01:11 69 18 127/86 99 04/13/19 01:00 69 19 127/86 99 04/13/19 00:51 69 19 117/82 99 05 00:41 76 19 117/82 99 05 00:31 71 17 117/82 99 05 00:21 75 18 117/82 99 05 00:11 78 18 117/82 99 05 00:00 99.6 F 73 70 19 123/84 99 05 23:51 66 18 117/82 100 05 23:41 75 19 117/82 100 05 23:31 72 19 117/82 98 05 23:21 74 18 117/82 99 05 23:11 70 20 117/82 99 05 23:05 79 20 144/93 99 05 23:00 78 18 117/82 99 05 22:51 75 18 144/93 99 05/20/19 22:45 99.6 F 05/20/19 22:41 74 18 144/93 99 05/20/19 22:31 76 19 144/93 99 05/20/19 22:20 79 23 144/93 100 05/20/19 22:19 84 99/70 100 05/20/19 22:00 75 05/20/19 21:41 81 13 99/70 99 05/20/19 21:30 96 H 99/70 100 05/20/19 21:10 81 21 99/70 99 05/20/19 21:00 74 18 99/70 98 05/20/19 20:51 80 18 103/73 98 05/20/19 20:41 77 18 103/73 98 05/20/19 20:31 78 19 103/73 98 05/20/19 20:21 79 18 103/73 98 05/20/19 20:15 76 17 95/65 99 05/20/19 20:11 72 16 103/73 100 05/20/19 20:00 97.4 F L 83 83 16 95/65 98 05/20/19 19:51 82 17 94/51 98 05/20/19 19:41 82 16 94/51 100 05/20/19 19:31 85 18 94/51 99 05/20/19 19:21 90 21 94/51 99 05/20/19 19:11 91 H 16 94/51 98 05/20/19 19:00 94 H 17 103/73 98 05/20/19 18:51 93 H 19 94/51 99 05/20/19 18:41 90 23 94/51 99 05/20/19 18:36 102 H 18 99 05/20/19 18:31 88 18 94/51 97 05/20/19 18:21 95 H 17 94/51 97 05/20/19 18:11 87 17 94/51 96 05/20/19 18:01 93 H 17 94/51 95 05/20/19 18:00 99 H 17 121/78 95 05/20/19 17:51 99 H 19 146/77 94 05/20/19 17:41 105 H 22 146/77 98 05/20/19 17:31 101 H 17 146/77 100 05/20/19 17:23 121/78 05/20/19 17:00 97.6 F 135 H 34 H 149/101 93 04/12/19 16:00 131 H 24 157/107 04/12/19 15:45 97.8 F 76 28 H 91/72 74 L 04/12/19 13:55 97.9 F 87 18 142/84 96 - Physical Examination General: No Apparent Distress HEENT: Positive: PERRL Neck: Positive: trachea midline Cardiac: Positive: irregularly irregular Lungs: Positive: Decreased Breath Sounds Neuro: Positive: Grossly Intact Extremities: Absent: edema
--- NOTE | 2019-04-13 11:53 | Consultation ---
History of Present Illness Consult date: 04/13/19 Requesting physician: JYOTI VANN Reason for consult: hypoxemia, other (afib with RVR) History of present illness: 64 y/o male, transferred from the che unit yesterday with acute respiratory failure and afib with rvr. Patient was started on bipap and amiodarone drip. Given new onset of afib and hypoxemia, concern for PE. CTA done and negative but shows bilateral pleural effusions and bilateral ggo's throughout. Patient was given lasix and had significant improvement. RAte is now controlled and breathing is much improved. Past History Past Medical History: hypertension, hyperlipidemia, other (metabolic encephalopathy) Past Surgical History: No surgical history Social history: no significant social history, lives with family Family history: no significant family history Medications and Allergies Allergies Allergy/AdvReac Type Severity Reaction Status Date / Time No Known Allergies Allergy Unverified 02/02/16 11:34 Home Medications Medication Instructions Recorded Confirmed Last Taken Type ALPRAZolam [Xanax TAB] 1 mg PO TID PRN #20 tablet 02/02/16 04/10/19 Unknown Rx Oxycodone HCl/Acetaminophen 1 tab PO Q6H 02/02/16 04/10/19 Unknown History [Percocet 10/325 mg] Rosuvastatin Calcium [Crestor] 40 mg PO QHS 02/02/16 04/10/19 Unknown History guaiFENesin/DEXTROMETHORPHAN 1 tab PO BID 02/02/16 04/10/19 Unknown History [Mucinex Dm ER 1,200-60 mg Tab] methOCARBAMOL [Robaxin TAB] 500 mg PO Q6H PRN 02/02/16 04/10/19 Unknown History Active Meds: Active Medications Alprazolam (Xanax) 1 mg PO TID PRN PRN Reason: Anxiety Last Admin: 04/12/19 15:40 Dose: 1 mg Documented by: Docusate Sodium (Colace) 100 mg PO BID [facility] Last Admin: 04/13/19 10:01 Dose: 100 mg Documented by: Azithromycin 500 mg/ Sodium (Chloride) 250 mls @ 250 mls/hr IV Q24HR [facility] Last Admin: 04/13/19 10:04 Dose: 250 mls/hr Documented by: Ceftriaxone Sodium (Rocephin/Ns 1 Gm/50 Ml) 1 gm in 50 mls @ 100 mls/hr IV Q24HR [facility]; Protocol Last Admin: 04/13/19 10:01 Dose: 100 mls/hr Documented by: Amiodarone HCl 900 mg/ (Dextrose) 500 mls @ 33.333 mls/hr IV DIRECT [facility]; Protocol Last Titration: 04/12/19 23:15 Dose: 0.5 mg/min, 16.667 mls/hr Documented by: Insulin Human Regular (Humulin R) 0 units SUB-Q ACHS [facility]; Protocol Last Admin: 04/13/19 08:00 Dose: Not Given Documented by: Ondansetron HCl (Zofran) 4 mg IV Q8H PRN PRN Reason: Nausea And Vomiting Oxycodone/Acetaminophen (Percocet 5/325) 1 tab PO Q6H PRN PRN Reason: Pain, Moderate (4-6) Last Admin: 04/12/19 15:39 Dose: 1 tab Documented by: Polyethylene Glycol (Miralax 3350) 17 gm PO QDAY [facility] Last Admin: 04/13/19 10:01 Dose: 17 gm Documented by: Sodium Chloride (Sodium Chloride Flush Syringe 10 Ml) 10 ml IV BID [facility] Last Admin: 04/12/19 22:50 Dose: 10 ml Documented by: Review of Systems All systems: negative Physical Examination Vital signs: Vital Signs Temp Pulse Resp BP Pulse Ox 102.3 F H 140 H 20 119/80 100 04/09/19 19:59 04/09/19 19:59 04/09/19 19:59 04/09/19 19:59 04/09/19 19:59 General appearance: no acute distress, alert ENT: oropharynx moist Ascultation: Bilateral: diminished breath sounds Percussion: Bilateral: not dull Tactile fremitus: Bilateral: normal Gastrointestinal: normoactive bowel sounds, soft Extremities: pink and warm, edema (trace) Results - Laboratory Findings CBC and BMP: 04/10/19 12:31 04/10/19 12:31 PT/INR, D-dimer PT 12.8 Sec. (12.2-14.9) 04/09/19 20:22 INR 0.91 (0.87-1.13) 04/09/19 20:22 Abnormal lab findings: Abnormal Labs 04/09/19 04/09/19 04/09/19 20:22 20:22 20:22 WBC 15.4 H RBC 5.36 H Hgb 16.9 H Hct 49.5 H Lymph % (Auto) 6.0 L Lymph # 0.9 L Seg Neutrophils % 89.0 H Seg Neutrophils # 13.7 H Sodium 130 L Chloride 92.6 L Glucose 186 H POC Glucose Total Bilirubin 1.70 H Direct Bilirubin AST 121 H ALT 85 H Alkaline Phosphatase 442 H Total Creatine Kinase CK-MB (CK-2) Rel Index Troponin T 0.044 H Total Protein Albumin 3.6 L Salicylates < 0.3 L Acetaminophen 04/09/19 04/09/19 04/10/19 20:22 20:22 04:06 WBC RBC Hgb Hct Lymph % (Auto) Lymph # Seg Neutrophils % Seg Neutrophils # Sodium Chloride Glucose POC Glucose Total Bilirubin Direct Bilirubin AST ALT Alkaline Phosphatase Total Creatine Kinase 23 L 26 L CK-MB (CK-2) Rel Index 6.1 H Troponin T Total Protein Albumin Salicylates Acetaminophen < 5.0 L 04/10/19 04/11/19 04/11/19 12:31 07:21 11:28 WBC RBC Hgb Hct Lymph % (Auto) Lymph # Seg Neutrophils % Seg Neutrophils # Sodium Chloride Glucose 150 H POC Glucose 110 H 114 H Total Bilirubin Direct Bilirubin 0.6 H AST 61 H ALT 64 H Alkaline Phosphatase 342 H Total Creatine Kinase 25 L CK-MB (CK-2) Rel Index 8.0 H Troponin T Total Protein 6.2 L Albumin 3.1 L Salicylates Acetaminophen 04/11/19 04/12/19 04/12/19 21:21 11:13 16:04 WBC RBC Hgb Hct Lymph % (Auto) Lymph # Seg Neutrophils % Seg Neutrophils # Sodium Chloride Glucose POC Glucose 138 H 119 H 137 H Total Bilirubin Direct Bilirubin AST ALT Alkaline Phosphatase Total Creatine Kinase CK-MB (CK-2) Rel Index Troponin T Total Protein Albumin Salicylates Acetaminophen 04/13/19 00:56 WBC RBC Hgb Hct Lymph % (Auto) Lymph # Seg Neutrophils % Seg Neutrophils # Sodium Chloride Glucose POC Glucose 120 H Total Bilirubin Direct Bilirubin AST ALT Alkaline Phosphatase Total Creatine Kinase CK-MB (CK-2) Rel Index Troponin T Total Protein Albumin Salicylates Acetaminophen - Diagnostic Findings CT scan - chest: image reviewed (as stated in HPI) Assessment and Plan 64 y/o male with acute respiratory failure most likely secondary to flash pulmonary edema from afib with RVR 1. Rate control 2. Diruesis as needed 3. Follow up cardiology recs 4. Wean FiO2 for sats >88% 5. Stable for transfer out of unit. Keep Bipap therapy as PRN
[2019-04-13] MEDS: CORDARONE 900 MG in D5W 482 ML IV SCH (13:49)
--- NOTE | 2019-04-13 14:54 | Progress Note ---
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 He was found to have a fever, no source. CT of the head shows possible subdural versus artifact on one slice of the CT head. Then on 04/12/19 patient developed acute respiratory failure and afib with RVR requring bipap and iv amiodarone drip and transfer to ICU. CTA done and negative but shows bilateral pleural effusions and bilateral ggo's throughout. Patient was given lasix and had significant improvement. Rate is now controlled and breathing is much improved. Acute respiratory failure due to flash p. edema from RVR afib: consult Cardiology, on Amiodarone drip SIRS, Obtain 2 view chest x-ray, ua neg Dehydration/malnutrition and failure to thrive-IV fluids, physical therapy Abnormal CT head-most likely old lesion, MRI also ordered Transaminitis -Statins on hold, continue IV fluids, check direct Billirubin, ruq sono Type 2 diabetes-SSI AFib- Rate controlled. Cardiology consult appreciated FFT/moderate malnutrition PT, OT and ST consult, cost coordinator consult, cont supportive care DVT prophylaxis with scds pending exclusion of subdural hematoma brain History Interval history: Patient was seen and examined. Follow-up on current diagnosis of Afib with RVR. No overnight events reported to me. Patient denies any chest pain, shortness breath, nausea/vomiting or severe headaches. Imaging, nursing note, chart, labs and old chart reviewed. Discussed with patient. Hospitalist Physical - Physical exam Narrative exam: Gen: WDWN, NAD, Awake, Alert, Orientated HEENT: NCAT, EOMI, PERRL, OP Clear Neck: supple, no adenopathy, no thyromegaly, no JVD CVS/Heart: irregular irregular normal S1S2, pulses present bilaterally Chest/Lungs: bilateral crackles Symmetrical chest expansion, good air entry bilaterally GI/Abdomen: soft, NTND, good bowel sounds, no guarding or rebound /Bladder: no suprapubic tenderness, no CVA or paraspinal tenderness Extermity/Skin: no obvious rash, significant Kyphosis MSK: FROM x 4 Neuro: CN 2-12 grossly intact, no new focal deficits Psych: calm - Constitutional Vitals: Temp Pulse Resp BP Pulse Ox 98.0 F 75 16 122/77 100 04/13/19 12:00 04/13/19 12:41 04/13/19 12:41 04/13/19 12:41 04/13/19 12:41 General appearance: Present: no acute distress Results - Labs CBC & Chem 7: 04/10/19 12:31 04/10/19 12:31 Labs: Laboratory Last Values WBC 7.0 K/mm3 (4.5-11.0) 04/10/19 12:31 RBC 4.82 M/mm3 (3.65-5.03) 04/10/19 12:31 Hgb 15.2 gm/dl (11.8-15.2) 04/10/19 12:31 Hct 45.2 % (35.5-45.6) 04/10/19 12:31 MCV 94 fl (84-94) 04/10/19 12:31 MCH 32 pg (28-32) 04/10/19 12:31 MCHC 34 % (32-34) 04/10/19 12:31 RDW 13.7 % (13.2-15.2) 04/10/19 12:31 Plt Count 269 K/mm3 (140-440) 04/10/19 12:31 Lymph % (Auto) 28.5 % (13.4-35.0) 04/10/19 12:31 Nicholas % (Auto) 6.8 % (0.0-7.3) 04/10/19 12:31 Eos % (Auto) 1.4 % (0.0-4.3) 04/10/19 12:31 Baso % (Auto) 0.6 % (0.0-1.8) 04/10/19 12:31 Lymph # 2.0 K/mm3 (1.2-5.4) 04/10/19 12:31 Nicholas # 0.5 K/mm3 (0.0-0.8) 04/10/19 12:31 Eos # 0.1 K/mm3 (0.0-0.4) 04/10/19 12:31 Baso # 0.0 K/mm3 (0.0-0.1) 04/10/19 12:31 Seg Neutrophils % 62.7 % (40.0-70.0) 04/10/19 12:31 Seg Neutrophils # 4.4 K/mm3 (1.8-7.7) 04/10/19 12:31 PT 12.8 Sec. (12.2-14.9) 04/09/19 20:22 INR 0.91 (0.87-1.13) 04/09/19 20:22 Sodium 139 mmol/L (137-145) D 04/10/19 12:31 Potassium 4.5 mmol/L (3.6-5.0) 04/10/19 12:31 Chloride 102.6 mmol/L (98-107) 04/10/19 12:31 Carbon Dioxide 25 mmol/L (22-30) 04/10/19 12:31 16 mmol/L 04/10/19 12:31 BUN 11 mg/dL (9-20) 04/10/19 12:31 0.9 mg/dL (0.8-1.5) 04/10/19 12:31 Estimated GFR > 60 ml/min 04/10/19 12:31 12 % 04/10/19 12:31 Glucose 150 mg/dL (75-100) H 04/10/19 12:31 POC Glucose 115 (70-105) H 04/13/19 12:01 Lactic Acid 1.80 mmol/L (0.7-2.0) 04/09/19 20:22 Calcium 8.7 mg/dL (8.4-10.2) 04/10/19 12:31 1.20 mg/dL (0.1-1.2) 04/10/19 12:31 0.6 mg/dL (0-0.2) H 04/10/19 12:31 0.6 mg/dL 04/10/19 12:31 AST 61 units/L (5-40) H 04/10/19 12:31 ALT 64 units/L (7-56) H 04/10/19 12:31 342 units/L (35-129) H 04/10/19 12:31 26.0 umol/L (25-60) 04/10/19 04:06 25 units/L (55-170) L 04/10/19 12:31 CK-MB (CK-2) 2.0 ng/mL (0.0-4.0) 04/10/19 12:31 CK-MB (CK-2) Rel Index 8.0 (0-4) H 04/10/19 12:31 < 0.010 ng/mL (0.00-0.029) 04/10/19 12:31 6.2 g/dL (6.3-8.2) L 04/10/19 12:31 3.1 g/dL (3.9-5) L 04/10/19 12:31 1.0 % 04/10/19 12:31 Triglycerides 120 mg/dL (2-149) 04/09/19 20:22 Cholesterol 179 mg/dL (50-199) 04/09/19 20:22 115 mg/dL (50-130) 04/09/19 20:22 56 mg/dL (40-59) 04/09/19 20:22 3.19 % 04/09/19 20:22 TSH 1.160 mlU/mL (0.270-4.200) 04/09/19 20:22 Katie (Yellow) 04/09/19 21:49 Clear (Clear) 04/09/19 21:49 6.0 (5.0-7.0) 04/09/19 21:49 Ur Specific [place] 1.016 (1.003-1.030) 04/09/19 21:49 <15 mg/dl mg/dL (Negative) 04/09/19 21:49 Neg mg/dL (Negative) 04/09/19 21:49 Neg mg/dL (Negative) 04/09/19 21:49 Neg (Negative) 04/09/19 21:49 Neg (Negative) 04/09/19 21:49 Neg (Negative) 04/09/19 21:49 4.0 mg/dL (<2.0) 04/09/19 21:49 Ur Leukocyte Esterase Neg (Negative) 04/09/19 21:49 2.0 /HPF (0.0-6.0) 04/09/19 21:49 1.0 /HPF (0.0-6.0) 04/09/19 21:49 U Epithel Cells (Auto) < 1.0 /HPF (0-13.0) 04/09/19 21:49 Few /HPF 04/09/19 21:49 Salicylates < 0.3 mg/dL (2.8-20.0) L 04/09/19 20:22 Presumptive negative 04/09/19 21:49 Presumptive negative 04/09/19 21:49 Acetaminophen < 5.0 ug/mL (10.0-30.0) L 04/09/19 20:22 Ur Barbiturates Screen Presumptive negative 04/09/19 21:49 Ur Phencyclidine Scrn Presumptive negative 04/09/19 21:49 Ur Amphetamines Screen Presumptive negative 04/09/19 21:49 U Benzodiazepines Scrn Presumptive positive 04/09/19 21:49 Presumptive negative 04/09/19 21:49 U Marijuana (THC) Screen Presumptive negative 04/09/19 21:49 Disclamer 04/09/19 21:49 Plasma/Serum Alcohol < 0.01 % (0-0.07) 04/09/19 20:22 Active Medications - Current Medications Current Medications: Generic Name Dose Route Start Last Admin Trade Name Freq PRN Reason Stop Dose Admin Alprazolam 1 mg 04/10/19 06:25 04/12/19 15:40 Xanax PO 1 mg TID PRN Administration Anxiety Amiodarone HCl 200 mg 04/13/19 15:00 Cordarone PO BID MARIUSZ Docusate Sodium 100 mg 04/10/19 10:00 04/13/19 10:01 Colace PO 100 mg BID [facility]Z Administration Azithromycin 500 mg/ Sodium 250 mls @ 250 mls/hr 04/10/19 10:00 04/13/19 10:04 Chloride IV 250 mls/hr Q24HR [facility] Administration Ceftriaxone Sodium 1 gm in 50 mls @ 100 mls/hr 04/10/19 10:00 04/13/19 10:01 Rocephin/Ns 1 Gm/50 Ml IV 100 mls/hr Q24HR [facility] Administration Protocol Insulin Human Regular 0 units 04/10/19 07:30 04/13/19 12:29 Humulin R SUB-Q Not Given ACHS [facility]USZ Protocol Ondansetron HCl 4 mg 04/10/19 00:04 Zofran IV Q8H PRN Nausea And Vomiting Oxycodone/Acetaminophen 1 tab 04/10/19 00:04 04/12/19 15:39 Percocet 5/325 PO 1 tab Q6H PRN Administration Pain, Moderate (4-6) Polyethylene Glycol 17 gm 04/10/19 21:00 04/13/19 10:01 Miralax 3350 PO 17 gm QDAY [facility] Administration Sodium Chloride 10 ml 04/10/19 10:00 04/12/19 22:50 Sodium Chloride Flush Syringe 10 Ml IV 10 ml BID [facility]USZ Administration Nutrition/Malnutrition Assess - Dietary Evaluation Nutrition/Malnutrition Findings: Nutrition Notes Start: 04/10/19 10:07 Freq: Status: Active Protocol: Document 04/11/19 14:39 RM (Rec: 04/11/19 14:52 RM [email or web address]) Nutrition Notes Initial or Follow up Assessment Current Diagnosis CKD(stage I-IV),Diabetes, Hyperlipidemia Other Pertinent Diagnosis GERD, Mental retardation, Anxiety, Dementia Current Diet Cardiac Labs/Tests Reviewed Pertinent Medications Reviewed Height 5 ft 10 in Weight 86.4 kg Usual Body Weight 86.36 kg [place] Body Weight (kg) 75.45 BMI 27.3 Subjective/Other Information Pt stated that [employer] he ate 2 meals daily. Stated that his appetite is good and that he eats 50% of his meals. Admitted to some chewing difficulty d/t missing teeth. Stated UBW was 190 lbs 2 months ago. No temporal or orbital wasting . Percent of energy/protein needs met: 49%/48% Burn Absent Trauma Absent #1 Nutrition Diagnosis Inadequate oral intake Etiology chewing difficulty As Evidenced by Signs and Symptoms pt statement that he eats 50% of his meals Is patient on ventilator? No Is Patient Ambulatory and/or Out of Bed Yes REE-([facility]-ambulatory/OOB) [ 2151.825 [id number]] Calculation Used for Recommendations [facility] Additional Notes Protein Needs: 86-104g (1-1.2g /kg) Fluid Needs: 1 ml/kcal Nutrition Intervention Change Diet Order: Cardiac, Mech soft w/ground meat Add Supplement/Snack (indicate name/kcal Glucerna [place] 1 daily /protein ) Provides kCal: 220 Provides Protein (gm) 10 Goal #1 Meet at least 75% of calorie and protein needs via PO and ONS intakes Anticipated Discharge Needs: Cardiac diet Follow-Up By: 04/14/19 Additional Comments Follow for PO and ONS intakes
[2019-04-13] MEDS: CORDARONE PO SCH ×2 (15:00→21:06)
[2019-04-13] MEDS: PERCOCET 5/325 PO PRN (17:31)
[2019-04-13] MEDS: SODIUM CHLORIDE FLUSH SYRINGE 10 ML IV SCH (21:06)
[2019-04-13] MEDS: XANAX PO PRN (21:06)
[2019-04-14 07:09] LABS: Hematocrit 40.6 % (35.5-45.6); Hemoglobin 13.9 gm/dl (11.8-15.2); Mean Corpuscular HGB Conc 34 % (32-34); Mean Corpuscular Volume 92 fl (84-94); Platelet Count 276 K/mm3 (140-440); Red Blood Count 4.41 M/mm3 (3.65-5.03); Red Cell Distribution Width 13.5 % (13.2-15.2)
[2019-04-14] MEDS: HumuLIN R SUB-Q SCH ×4 (07:30→22:07)
[2019-04-14 07:32] LABS: BUN/Creatinine Ratio 9; Blood Urea Nitrogen 8 mg/dL (9-20); Calcium 8.3 mg/dL (8.4-10.2); Hemolysis Index 9
--- NOTE | 2019-04-14 09:25 | Progress Note ---
Assessment and Plan Acute respiratory failure no evidence of PE via chest CTA Generalized pain Altered mental status head CT and brain MRI both revealed a frontal lobe lesion of uncertain etiology. Fever Elevation of the liver transaminases Atrial fibrillation of uncertain chronicity on amiodarone An echocardiogram reports evidence of moderate pulmonary hypertension, RVSP 44 mmHg. Normal LVEF 50-55%. Recommendations: Continue medical therapy for atrial fibrillation that persists. Patient considered not be a candidate for oral anticoagulation in the setting of a frontal lobe mass of undefined etiology. Subjective Date of service: 04/14/19 Interval history: Patient is resting in bed comfortably. He denies shortness of breath, chest pain and palpitations. Afib with a well controlled ventricular rate on telemetry. Objective Vital Signs Temp Pulse Resp BP BP Pulse Ox 04/14/19 08:11 98 04/14/19 07:49 97.8 F 61 18 135/83 98 04/14/19 04:00 68 04/14/19 03:27 98.3 F 75 17 115/84 98 04/14/19 00:00 98.4 F 90 16 144/93 95 04/13/19 23:12 92 H 150/101 92 04/13/19 21:20 98 04/13/19 20:03 98.6 F 68 18 131/68 04/13/19 14:57 98.5 F 18 152/93 04/13/19 13:31 84 20 129/76 99 04/13/19 13:21 78 15 129/76 100 04/13/19 13:10 79 19 122/77 100 04/13/19 13:00 72 21 129/76 100 04/13/19 12:51 70 19 122/77 100 04/13/19 12:41 75 16 122/77 100 04/13/19 12:31 76 11 L 122/77 100 04/13/19 12:21 76 20 122/77 100 04/13/19 12:11 79 15 122/77 100 04/13/19 12:00 98.0 F 80 22 122/77 100 04/13/19 11:51 69 20 121/82 99 04/13/19 11:41 78 22 121/82 99 04/13/19 11:31 84 21 121/82 100 04/13/19 11:21 84 18 121/82 100 04/13/19 11:11 85 21 121/82 100 04/13/19 11:01 80 21 121/82 100 04/13/19 10:51 80 16 132/93 100 04/13/19 10:41 73 14 132/93 100 04/13/19 10:31 81 21 132/93 100 04/13/19 10:21 71 21 132/93 100 04/13/19 10:10 83 21 132/93 100 04/13/19 10:00 76 20 132/93 100 04/13/19 09:50 80 22 131/82 100 04/13/19 09:47 99 04/13/19 09:41 80 22 127/85 98 04/13/19 09:31 74 22 127/85 99 04/13/19 09:21 84 18 127/85 99 - Physical Examination General: No Apparent Distress HEENT: Positive: PERRL Neck: Positive: trachea midline Cardiac: Positive: irregularly irregular Lungs: Positive: Decreased Breath Sounds Neuro: Positive: Grossly Intact, Weakness Extremities: Absent: edema - Labs and Meds CBC 04/14/19 Range/Units 05:04 WBC 9.3 (4.5-11.0) K/mm3 RBC 4.41 (3.65-5.03) M/mm3 Hgb 13.9 (11.8-15.2) gm/dl Hct 40.6 (35.5-45.6) % Plt Count 276 (140-440) K/mm3 Comprehensive Metabolic Panel 04/14/19 Range/Units 05:04 Sodium 139 (137-145) mmol/L Potassium 4.0 (3.6-5.0) mmol/L Chloride 101.3 (98-107) mmol/L Carbon Dioxide 25 (22-30) mmol/L BUN 8 L (9-20) mg/dL Creatinine 0.9 (0.8-1.5) mg/dL Glucose 110 H (75-100) mg/dL Calcium 8.3 L (8.4-10.2) mg/dL
[2019-04-14] MEDS: CORDARONE PO SCH (10:31)
[2019-04-14] MEDS: ZITHROMAX 500 MG in NACL 0.9% 250ML 250 ML IV SCH (10:31)
[2019-04-14] MEDS: MIRALAX 3350 PO SCH (10:31)
[2019-04-14] MEDS: COLACE PO SCH ×2 (10:31→21:49)
[2019-04-14] MEDS: SODIUM CHLORIDE FLUSH SYRINGE 10 ML IV SCH ×3 (10:32→21:51)
[2019-04-14] MEDS: PERCOCET 5/325 PO PRN ×2 (10:35→18:38)
[2019-04-14] MEDS: ROCEPHIN/NS 1 GM/50 ML 1 GM/50 ML BAG IV SCH (10:38)
--- NOTE | 2019-04-14 11:48 | Progress Note ---
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 He was found to have a fever, no source. CT of the head shows possible subdural versus artifact on one slice of the CT head. Then on 04/12/19 patient developed acute respiratory failure and afib with RVR requring bipap and iv amiodarone drip and transfer to ICU. CTA done and negative but shows bilateral pleural effusions and bilateral ggo's throughout. Patient was given lasix and had significant improvement. Rate is now controlled and breathing is much improved. * 04/10/19 MRI brain without brain IMPRESSION: * Oval or round extra-axial lesion in the left frontal lobe region. Findings may represent meningioma, tumor, dural vessel, or hematoma. Further evaluation with MRI or CT head with contrast may be helpful if clinically indicated. Coronal and sagittal reconstructed imaging is recommended. * 04/10/19 Limited U/S abdomen IMPRESSION: Gallbladder demonstrates sludge and sludge ball. No cholelithiasis identified. No sonographic evidence of acute cholecystitis, Extrahepatic biliary dilatation. Clinical correlation. If further evaluation warranted, MRCP recommended No right hydronephrosis No free fluid Mild ectasia of the aorta.. * 04/12/19 CTA chest IMPRESSION: No evidence of pulmonary embolism Bilateral consolidations are consistent with bilateral pneumonia. Mild degree of bilateral pleural effusions Coronary arterial calcification Left lobe thyroid nodule. Ultrasound evaluation is recommended. Acute respiratory failure due to flash p. edema from Afib with RVR: Cardiology input noted, transition IV Amiodarone drip to oral Coreg, try to wean off O2, currently on 2 liters, he is refusing bipap at night. Pulm following Sepsis from Bilateral pneumonia, poa: continue abx, last day for abx 04/15/19 Dehydration/malnutrition and failure to thrive-Instrumentation Tech consulted Abnormal CT head-->Left frontal lobe unspecified mass: consulted Neurology, ordered MRI brain with iv contrast Transaminitis with GB sludge -Statins on hold, repeat CMP, MRCP pending Type 2 diabetes-SSI, ada diet AFib with RVR- Rate controlled. Cardiology consulted, input noted FFT/moderate malnutrition Deconditioned: PT, OT and ST consult, dispatcher motor vehicle consult, cont supportive care DVT prophylaxis with scds pending exclusion of subdural hematoma brain New issues discovered: Bilateral pneumonia, most likely sepsis from bilateral pneumonia POA as patient has been on IV rocephin and IV azithromycin since 04/10/19, last day is tomorrow. Left Frontal Lobe brain mass ==>ordered brain MRI with iv contrast GB sludge with MRCP pending since the 04/11. Disposition: continue inpatient care, repeat CMP and follow up MRCP and MRI brain with IV contrast, then Cardiology to clear for home if heart rate under 100/afib controlled then possibly discharge in 1-2. Also, have Neurology see patient, we do not have Neurosurgery at this hospital. History Interval history: Patient was seen and examined. Follow-up on current diagnosis of Afib with RVR. No overnight events reported to me. Patient denies any chest pain, shortness breath, nausea/vomiting or severe headaches. Imaging, nursing note, chart, labs and old chart reviewed. Discussed with patient. Hospitalist Physical - Physical exam Narrative exam: Gen: chronically disable appearing, NAD, Awake, Alert, Orientated HEENT: NCAT, EOMI, PERRL, OP Clear Neck: supple, no adenopathy, no thyromegaly, no JVD CVS/Heart: irregular irregular, normal S1S2, pulses present bilaterally Chest/Lungs: bilateral crackles, Symmetrical chest expansion, good air entry bilaterally GI/Abdomen: soft, NTND, good bowel sounds, no guarding or rebound /Bladder: no suprapubic tenderness, no CVA or paraspinal tenderness Extermity/Skin: no obvious rash, significant Kyphosis MSK: FROM x 4 Neuro: CN 2-12 grossly intact, no new focal deficits Psych: calm - Constitutional Vitals: Temp Pulse Resp BP Pulse Ox 97.8 F 61 18 135/83 98 04/14/19 07:49 04/14/19 07:49 04/14/19 07:49 04/14/19 07:49 04/14/19 08:11 General appearance: Present: no acute distress Results - Labs CBC & Chem 7: 04/14/19 05:04 04/14/19 05:04 Labs: Laboratory Last Values WBC 9.3 K/mm3 (4.5-11.0) 04/14/19 05:04 RBC 4.41 M/mm3 (3.65-5.03) 04/14/19 05:04 Hgb 13.9 gm/dl (11.8-15.2) 04/14/19 05:04 Hct 40.6 % (35.5-45.6) 04/14/19 05:04 MCV 92 fl (84-94) 04/14/19 05:04 MCH 32 pg (28-32) 04/14/19 05:04 MCHC 34 % (32-34) 04/14/19 05:04 RDW 13.5 % (13.2-15.2) 04/14/19 05:04 Plt Count 276 K/mm3 (140-440) 04/14/19 05:04 Lymph % (Auto) 28.5 % (13.4-35.0) 04/10/19 12:31 Brooke % (Auto) 6.8 % (0.0-7.3) 04/10/19 12:31 Eos % (Auto) 1.4 % (0.0-4.3) 04/10/19 12:31 Baso % (Auto) 0.6 % (0.0-1.8) 04/10/19 12:31 Lymph # 2.0 K/mm3 (1.2-5.4) 04/10/19 12:31 Brooke # 0.5 K/mm3 (0.0-0.8) 04/10/19 12:31 Eos # 0.1 K/mm3 (0.0-0.4) 04/10/19 12:31 Baso # 0.0 K/mm3 (0.0-0.1) 04/10/19 12:31 Seg Neutrophils % 62.7 % (40.0-70.0) 04/10/19 12:31 Seg Neutrophils # 4.4 K/mm3 (1.8-7.7) 04/10/19 12:31 PT 12.8 Sec. (12.2-14.9) 04/09/19 20:22 INR 0.91 (0.87-1.13) 04/09/19 20:22 Sodium 139 mmol/L (137-145) 04/14/19 05:04 Potassium 4.0 mmol/L (3.6-5.0) 04/14/19 05:04 Chloride 101.3 mmol/L (98-107) 04/14/19 05:04 Carbon Dioxide 25 mmol/L (22-30) 04/14/19 05:04 17 mmol/L 04/14/19 05:04 BUN 8 mg/dL (9-20) L 04/14/19 05:04 0.9 mg/dL (0.8-1.5) 04/14/19 05:04 Estimated GFR > 60 ml/min 04/14/19 05:04 9 % 04/14/19 05:04 Glucose 110 mg/dL (75-100) H 04/14/19 05:04 POC Glucose 107 (70-105) H 04/14/19 07:54 Lactic Acid 1.80 mmol/L (0.7-2.0) 04/09/19 20:22 Calcium 8.3 mg/dL (8.4-10.2) L 04/14/19 05:04 1.20 mg/dL (0.1-1.2) 04/10/19 12:31 0.6 mg/dL (0-0.2) H 04/10/19 12:31 0.6 mg/dL 04/10/19 12:31 AST 61 units/L (5-40) H 04/10/19 12:31 ALT 64 units/L (7-56) H 04/10/19 12:31 342 units/L (35-129) H 04/10/19 12:31 26.0 umol/L (25-60) 04/10/19 04:06 25 units/L (55-170) L 04/10/19 12:31 CK-MB (CK-2) 2.0 ng/mL (0.0-4.0) 04/10/19 12:31 CK-MB (CK-2) Rel Index 8.0 (0-4) H 04/10/19 12:31 < 0.010 ng/mL (0.00-0.029) 04/10/19 12:31 6.2 g/dL (6.3-8.2) L 04/10/19 12:31 3.1 g/dL (3.9-5) L 04/10/19 12:31 1.0 % 04/10/19 12:31 Triglycerides 120 mg/dL (2-149) 04/09/19 20:22 Cholesterol 179 mg/dL (50-199) 04/09/19 20:22 115 mg/dL (50-130) 04/09/19 20:22 56 mg/dL (40-59) 04/09/19 20:22 3.19 % 04/09/19 20:22 TSH 1.160 mlU/mL (0.270-4.200) 04/09/19 20:22 Katie (Yellow) 04/09/19 21:49 Clear (Clear) 04/09/19 21:49 6.0 (5.0-7.0) 04/09/19 21:49 Ur Specific [place] 1.016 (1.003-1.030) 04/09/19 21:49 <15 mg/dl mg/dL (Negative) 04/09/19 21:49 Neg mg/dL (Negative) 04/09/19 21:49 Neg mg/dL (Negative) 04/09/19 21:49 Neg (Negative) 04/09/19 21:49 Neg (Negative) 04/09/19 21:49 Neg (Negative) 04/09/19 21:49 4.0 mg/dL (<2.0) 04/09/19 21:49 Ur Leukocyte Esterase Neg (Negative) 04/09/19 21:49 2.0 /HPF (0.0-6.0) 04/09/19 21:49 1.0 /HPF (0.0-6.0) 04/09/19 21:49 U Epithel Cells (Auto) < 1.0 /HPF (0-13.0) 04/09/19 21:49 Few /HPF 04/09/19 21:49 Salicylates < 0.3 mg/dL (2.8-20.0) L 04/09/19 20:22 Presumptive negative 04/09/19 21:49 Presumptive negative 04/09/19 21:49 Acetaminophen < 5.0 ug/mL (10.0-30.0) L 04/09/19 20:22 Ur Barbiturates Screen Presumptive negative 04/09/19 21:49 Ur Phencyclidine Scrn Presumptive negative 04/09/19 21:49 Ur Amphetamines Screen Presumptive negative 04/09/19 21:49 U Benzodiazepines Scrn Presumptive positive 04/09/19 21:49 Presumptive negative 04/09/19 21:49 U Marijuana (THC) Screen Presumptive negative 04/09/19 21:49 Disclamer 04/09/19 21:49 Plasma/Serum Alcohol < 0.01 % (0-0.07) 04/09/19 20:22 Active Medications - Current Medications Current Medications: Generic Name Dose Route Start Last Admin Trade Name Freq PRN Reason Stop Dose Admin Alprazolam 1 mg 04/10/19 06:25 04/13/19 21:06 Xanax PO 1 mg TID PRN Administration Anxiety Amiodarone HCl 200 mg 04/15/19 10:00 Cordarone PO DAILY MARIUSZ Carvedilol 6.25 mg 04/14/19 12:00 Coreg PO BID MARIUSZ Docusate Sodium 100 mg 04/10/19 10:00 04/14/19 10:31 Colace PO 100 mg BID MARIUSZ Administration Azithromycin 500 mg/ Sodium 250 mls @ 250 mls/hr 04/10/19 10:00 04/14/19 10:31 Chloride IV 250 mls/hr Q24HR MARIUSZ Administration Ceftriaxone Sodium 1 gm in 50 mls @ 100 mls/hr 04/10/19 10:00 04/14/19 10:38 Rocephin/Ns 1 Gm/50 Ml IV 100 mls/hr Q24HR MARIUSZ Administration Protocol Insulin Human Regular 0 units 04/10/19 07:30 04/14/19 07:30 Humulin R SUB-Q Not Given ACHS MARIUSZ Protocol Ondansetron HCl 4 mg 04/10/19 00:04 Zofran IV Q8H PRN Nausea And Vomiting Oxycodone/Acetaminophen 1 tab 04/10/19 00:04 04/14/19 10:35 Percocet 5/325 PO 1 tab Q6H PRN Administration Pain, Moderate (4-6) Polyethylene Glycol 17 gm 04/10/19 21:00 04/14/19 10:31 Miralax 3350 PO 17 gm QDAY MARIUSZ Administration Sodium Chloride 10 ml 04/10/19 10:00 04/14/19 10:38 Sodium Chloride Flush Syringe 10 Ml IV 10 ml BID MARIUSZ Administration Nutrition/Malnutrition Assess - Dietary Evaluation Nutrition/Malnutrition Findings: Nutrition Notes Start: 04/10/19 10:07 Freq: Status: Active Protocol: Document 04/11/19 14:39 RM (Rec: 04/11/19 14:52 RM [id number]) Nutrition Notes Initial or Follow up Assessment Current Diagnosis CKD(stage I-IV),Diabetes, Hyperlipidemia Other Pertinent Diagnosis GERD, Mental retardation, Anxiety, Dementia Current Diet Cardiac Labs/Tests Reviewed Pertinent Medications Reviewed Height 5 ft 10 in Weight 86.4 kg Usual Body Weight 86.36 kg [place] Body Weight (kg) 75.45 BMI 27.3 Subjective/Other Information Pt stated that [employer] he ate 2 meals daily. Stated that his appetite is good and that he eats 50% of his meals. Admitted to some chewing difficulty d/t missing teeth. Stated UBW was 190 lbs 2 months ago. No temporal or orbital wasting . Percent of energy/protein needs met: 49%/48% Burn Absent Trauma Absent #1 Nutrition Diagnosis Inadequate oral intake Etiology chewing difficulty As Evidenced by Signs and Symptoms pt statement that he eats 50% of his meals Is patient on ventilator? No Is Patient Ambulatory and/or Out of Bed Yes [facility]) [ 2151.825 [id number]] Calculation Used for Recommendations [facility] Additional Notes Protein Needs: 86-104g (1-1.2g /kg) Fluid Needs: 1 ml/kcal Nutrition Intervention Change Diet Order: Cardiac, Mech soft w/ground meat Add Supplement/Snack (indicate name/kcal Glucerna [place] 1 daily /protein ) Provides kCal: 220 Provides Protein (gm) 10 Goal #1 Meet at least 75% of calorie and protein needs via PO and ONS intakes Anticipated Discharge Needs: Cardiac diet Follow-Up By: 04/14/19 Additional Comments Follow for PO and ONS intakes
--- NOTE | 2019-04-14 12:19 | Progress Note ---
Assessment and Plan 64 y/o male with acute respiratory failure most likely secondary to flash pulmonary edema from afib with RVR 1. Rate control, per cards. 2. Diruesis as needed. Negative 856 but could use more diuresis. Recommend another dose of lasix therapy. 3. Follow up any new cardiology recs 4. Wean FiO2 for sats >88%, will likely need walk test prior to discharge Subjective Date of service: 04/14/19 Interval history: Patient remains on 2 liters NC. Stable. Did not need PPV last night. Objective Vital Signs - 12hr 04/14/19 04/14/19 04/14/19 03:27 04:00 07:49 Temperature 98.3 F 97.8 F Pulse Rate 75 68 61 Respiratory 17 18 Rate Blood Pressure 115/84 135/83 O2 Sat by Pulse 98 98 Oximetry 04/14/19 08:11 Temperature Pulse Rate Respiratory Rate Blood Pressure O2 Sat by Pulse 98 Oximetry Constitutional: no acute distress, alert ENT: oropharynx moist Ascultation: Bilateral: diminished breath sounds Percussion: Bilateral: not dull Tactile fremitus: Bilateral: normal Gastrointestinal: normoactive bowel sounds, soft Extremities: pink and warm, edema (trace) CBC and BMP: 04/14/19 05:04 04/14/19 05:04 ABG, PT/INR, D-dimer: PT/INR, D-dimer PT 12.8 Sec. (12.2-14.9) 04/09/19 20:22 INR 0.91 (0.87-1.13) 04/09/19 20:22 Abnormal lab findings: Abnormal Labs 04/09/19 04/09/19 04/09/19 20:22 20:22 20:22 WBC 15.4 H RBC 5.36 H Hgb 16.9 H Hct 49.5 H Lymph % (Auto) 6.0 L Lymph # 0.9 L Seg Neutrophils % 89.0 H Seg Neutrophils # 13.7 H Sodium 130 L Chloride 92.6 L BUN Glucose 186 H POC Glucose Calcium Total Bilirubin 1.70 H Direct Bilirubin AST 121 H ALT 85 H Alkaline Phosphatase 442 H Total Creatine Kinase CK-MB (CK-2) Rel Index Troponin T 0.044 H Total Protein Albumin 3.6 L Salicylates < 0.3 L Acetaminophen 04/09/19 04/09/19 04/10/19 20:22 20:22 04:06 WBC RBC Hgb Hct Lymph % (Auto) Lymph # Seg Neutrophils % Seg Neutrophils # Sodium Chloride BUN Glucose POC Glucose Calcium Total Bilirubin Direct Bilirubin AST ALT Alkaline Phosphatase Total Creatine Kinase 23 L 26 L CK-MB (CK-2) Rel Index 6.1 H Troponin T Total Protein Albumin Salicylates Acetaminophen < 5.0 L 04/10/19 04/11/19 04/11/19 12:31 07:21 11:28 WBC RBC Hgb Hct Lymph % (Auto) Lymph # Seg Neutrophils % Seg Neutrophils # Sodium Chloride BUN Glucose 150 H POC Glucose 110 H 114 H Calcium Total Bilirubin Direct Bilirubin 0.6 H AST 61 H ALT 64 H Alkaline Phosphatase 342 H Total Creatine Kinase 25 L CK-MB (CK-2) Rel Index 8.0 H Troponin T Total Protein 6.2 L Albumin 3.1 L Salicylates Acetaminophen 04/11/19 04/12/19 04/12/19 21:21 11:13 16:04 WBC RBC Hgb Hct Lymph % (Auto) Lymph # Seg Neutrophils % Seg Neutrophils # Sodium Chloride BUN Glucose POC Glucose 138 H 119 H 137 H Calcium Total Bilirubin Direct Bilirubin AST ALT Alkaline Phosphatase Total Creatine Kinase CK-MB (CK-2) Rel Index Troponin T Total Protein Albumin Salicylates Acetaminophen 04/13/19 04/13/19 04/13/19 00:56 12:01 16:59 WBC RBC Hgb Hct Lymph % (Auto) Lymph # Seg Neutrophils % Seg Neutrophils # Sodium Chloride BUN Glucose POC Glucose 120 H 115 H 114 H Calcium Total Bilirubin Direct Bilirubin AST ALT Alkaline Phosphatase Total Creatine Kinase CK-MB (CK-2) Rel Index Troponin T Total Protein Albumin Salicylates Acetaminophen 04/13/19 04/14/19 04/14/19 21:12 05:04 07:54 WBC RBC Hgb Hct Lymph % (Auto) Lymph # Seg Neutrophils % Seg Neutrophils # Sodium Chloride BUN 8 L Glucose 110 H POC Glucose 116 H 107 H Calcium 8.3 L Total Bilirubin Direct Bilirubin AST ALT Alkaline Phosphatase Total Creatine Kinase CK-MB (CK-2) Rel Index Troponin T Total Protein Albumin Salicylates Acetaminophen
[2019-04-14] MEDS: XANAX PO PRN ×2 (14:35→21:49)
[2019-04-14] MEDS: COREG PO SCH ×2 (14:40→21:49)
--- NOTE | 2019-04-14 18:15 | Consultation ---
History of Present Illness Consult date: 04/14/19 Past History Past Medical History: hypertension, hyperlipidemia, other (metabolic encephalopathy) Past Surgical History: No surgical history Social history: no significant social history, lives with family Family history: no significant family history Medications and Allergies Allergies Allergy/AdvReac Type Severity Reaction Status Date / Time No Known Allergies Allergy Unverified 02/02/16 11:34 Home Medications Medication Instructions Recorded Confirmed Last Taken Type ALPRAZolam [Xanax TAB] 1 mg PO TID PRN #20 tablet 02/02/16 04/10/19 Unknown Rx Oxycodone HCl/Acetaminophen 1 tab PO Q6H 02/02/16 04/10/19 Unknown History [Percocet 10/325 mg] Rosuvastatin Calcium [Crestor] 40 mg PO QHS 02/02/16 04/10/19 Unknown History guaiFENesin/DEXTROMETHORPHAN 1 tab PO BID 02/02/16 04/10/19 Unknown History [Mucinex Dm ER 1,200-60 mg Tab] methOCARBAMOL [Robaxin TAB] 500 mg PO Q6H PRN 02/02/16 04/10/19 Unknown History Active Meds: Active Medications Alprazolam (Xanax) 1 mg PO TID PRN PRN Reason: Anxiety Last Admin: 04/14/19 14:35 Dose: 1 mg Documented by: Amiodarone HCl (Cordarone) 200 mg PO DAILY [facility] Carvedilol (Coreg) 6.25 mg PO BID [facility] Last Admin: 04/14/19 14:40 Dose: 6.25 mg Documented by: Docusate Sodium (Colace) 100 mg PO BID [facility] Last Admin: 04/14/19 10:31 Dose: 100 mg Documented by: Azithromycin 500 mg/ Sodium (Chloride) 250 mls @ 250 mls/hr IV Q24HR [facility] Last Admin: 04/14/19 10:31 Dose: 250 mls/hr Documented by: Ceftriaxone Sodium (Rocephin/Ns 1 Gm/50 Ml) 1 gm in 50 mls @ 100 mls/hr IV Q24HR [facility]; Protocol Last Admin: 04/14/19 10:38 Dose: 100 mls/hr Documented by: Insulin Human Regular (Humulin R) 0 units SUB-Q ACHS [facility]; Protocol Last Admin: 04/14/19 07:30 Dose: Not Given Documented by: Ondansetron HCl (Zofran) 4 mg IV Q8H PRN PRN Reason: Nausea And Vomiting Oxycodone/Acetaminophen (Percocet 5/325) 1 tab PO Q6H PRN PRN Reason: Pain, Moderate (4-6) Last Admin: 04/14/19 10:35 Dose: 1 tab Documented by: Polyethylene Glycol (Miralax 3350) 17 gm PO QDAY [facility] Last Admin: 04/14/19 10:31 Dose: 17 gm Documented by: Sodium Chloride (Sodium Chloride Flush Syringe 10 Ml) 10 ml IV BID [facility] Last Admin: 04/14/19 10:38 Dose: 10 ml Documented by: Physical Examination - Vital Signs Vital Signs: Vital Signs Temp Pulse Resp BP Pulse Ox 102.3 F H 140 H 20 119/80 100 04/09/19 19:59 04/09/19 19:59 04/09/19 19:59 04/09/19 19:59 04/09/19 19:59 Results - Laboratory Findings CBC and BMP: 04/14/19 05:04 04/14/19 05:04 Abnormal Lab Findings: Abnormal Labs 04/09/19 04/09/19 04/09/19 20:22 20:22 20:22 WBC 15.4 H RBC 5.36 H Hgb 16.9 H Hct 49.5 H Lymph % (Auto) 6.0 L Lymph # 0.9 L Seg Neutrophils % 89.0 H Seg Neutrophils # 13.7 H Sodium 130 L Chloride 92.6 L BUN Glucose 186 H POC Glucose Calcium Total Bilirubin 1.70 H Direct Bilirubin AST 121 H ALT 85 H Alkaline Phosphatase 442 H Total Creatine Kinase CK-MB (CK-2) Rel Index Troponin T 0.044 H Total Protein Albumin 3.6 L Salicylates < 0.3 L Acetaminophen 04/09/19 04/09/19 04/10/19 20:22 20:22 04:06 WBC RBC Hgb Hct Lymph % (Auto) Lymph # Seg Neutrophils % Seg Neutrophils # Sodium Chloride BUN Glucose POC Glucose Calcium Total Bilirubin Direct Bilirubin AST ALT Alkaline Phosphatase Total Creatine Kinase 23 L 26 L CK-MB (CK-2) Rel Index 6.1 H Troponin T Total Protein Albumin Salicylates Acetaminophen < 5.0 L 05/18/19 05/19/19 05/19/19 12:31 07:21 11:28 WBC RBC Hgb Hct Lymph % (Auto) Lymph # Seg Neutrophils % Seg Neutrophils # Sodium Chloride BUN Glucose 150 H POC Glucose 110 H 114 H Calcium Total Bilirubin Direct Bilirubin 0.6 H AST 61 H ALT 64 H Alkaline Phosphatase 342 H Total Creatine Kinase 25 L CK-MB (CK-2) Rel Index 8.0 H Troponin T Total Protein 6.2 L Albumin 3.1 L Salicylates Acetaminophen 04/11/19 04/12/19 04/12/19 21:21 11:13 16:04 WBC RBC Hgb Hct Lymph % (Auto) Lymph # Seg Neutrophils % Seg Neutrophils # Sodium Chloride BUN Glucose POC Glucose 138 H 119 H 137 H Calcium Total Bilirubin Direct Bilirubin AST ALT Alkaline Phosphatase Total Creatine Kinase CK-MB (CK-2) Rel Index Troponin T Total Protein Albumin Salicylates Acetaminophen 04/13/19 04/13/19 04/13/19 00:56 12:01 16:59 WBC RBC Hgb Hct Lymph % (Auto) Lymph # Seg Neutrophils % Seg Neutrophils # Sodium Chloride BUN Glucose POC Glucose 120 H 115 H 114 H Calcium Total Bilirubin Direct Bilirubin AST ALT Alkaline Phosphatase Total Creatine Kinase CK-MB (CK-2) Rel Index Troponin T Total Protein Albumin Salicylates Acetaminophen 04/13/19 04/14/19 04/14/19 21:12 05:04 07:54 WBC RBC Hgb Hct Lymph % (Auto) Lymph # Seg Neutrophils % Seg Neutrophils # Sodium Chloride BUN 8 L Glucose 110 H POC Glucose 116 H 107 H Calcium 8.3 L Total Bilirubin Direct Bilirubin AST ALT Alkaline Phosphatase Total Creatine Kinase CK-MB (CK-2) Rel Index Troponin T Total Protein Albumin Salicylates Acetaminophen 04/14/19 13:24 WBC RBC Hgb Hct Lymph % (Auto) Lymph # Seg Neutrophils % Seg Neutrophils # Sodium Chloride BUN Glucose POC Glucose 130 H Calcium Total Bilirubin Direct Bilirubin AST ALT Alkaline Phosphatase Total Creatine Kinase CK-MB (CK-2) Rel Index Troponin T Total Protein Albumin Salicylates Acetaminophen Assessment and Plan Prieto Martin. date of is 1955 and medical record number is [id number] Mr. Martin is a 63-year-old gentleman with history of hypertension and hyperlipidemia and [place] Meas[place] in childhood following which he had cerebral complication for which he became mentally retarded to an extent that he could not continue school as a result of which he cannot read or write at present. Patient was admitted recently for community acquired pneumonia and CT scan done on 04/10/2019 showed an incidental finding of extra axial space occupying lesion,which showed very defined margins. Patient did not complain of any headache specific to that location or any lateralizing weakness on the right upper or lower extremity. Physical examination. Gen. In no acute distress patient is alert and appropriate. Has insight into his problems and answers questions appropriately Heart Normal rate and rhythm Carotid: No bruit, both palpable. Cranial nerves: Patient has normal cranial nerves. Extraocular movement is intact. There is no facial asymmetry. He could swallow.Other cranial nerves are within normal limits. Motor.: Normal strength in all 4 extremities both proximally and distally. Reflexes. all reflexes of all extremities are within normal limit with bilateral down going toes. Sensory. Pain and touch sensation were within normal limit all 4 extremities Coordination; Coordination such as [id number] and [id number] were normal on both sites. Patient was noted to have a resting tremor in the right hand and was found to have mild cog wheeling at the right wrist joint. Gait was not tested due to patient's discomfort. Impression #1. Extra axial space occupying lesion on the left frontal lobe strongly suggest Meningioma #2. Patient also seems to have early Parkinson's disease affecting his right upper extremity Recommendation #. Patient should have follow-up neuroimaging every 6 months for 1 year and if no increase in size then every 1 year to see if meningioma converting to malignancy, although the possibilities very rare. #2. Patient should be started on Sinemet 25/100 mg by mouth twice a day and this medication should be given 1 hour before meal, #.Patient should follow up with his neurologist upon discharge for further adjustment of sinemet in future if needed.
--- NOTE | 2019-04-15 09:17 | Progress Note ---
Assessment and Plan Acute respiratory failure no evidence of PE via chest CTA Generalized pain Altered mental status head CT and brain MRI both revealed a frontal lobe lesion of uncertain etiology. Fever Elevation of the liver transaminases Atrial fibrillation of uncertain chronicity rate controlled on amiodarone and coreg An echocardiogram reports evidence of moderate pulmonary hypertension, RVSP 44 mmHg. Normal LVEF 50-55%. Recommendations: Continue medical therapy for atrial fibrillation that persists. Patient considered not be a candidate for oral anticoagulation in the setting of a frontal lobe mass of undefined etiology. Subjective Date of service: 04/15/19 Interval history: Patient is resting in bed comfortably. He denies shortness of breath, chest pain and palpitations. Afib with a well controlled ventricular rate on telemetry. Objective Vital Signs Temp Pulse Resp BP Pulse Ox 04/15/19 04:22 97.5 F L 04/15/19 04:21 79 18 139/81 99 04/14/19 23:32 97.9 F 04/14/19 23:29 52 L 18 94/55 97 04/14/19 21:55 99 04/14/19 21:49 83 04/14/19 20:53 20 04/14/19 20:48 83 04/14/19 20:25 98.7 F 04/14/19 20:23 83 18 128/80 99 04/14/19 17:34 98.0 F 70 16 112/61 96 - Physical Examination General: No Apparent Distress HEENT: Positive: PERRL Neck: Positive: trachea midline Cardiac: Positive: irregularly irregular Lungs: Positive: Decreased Breath Sounds Neuro: Positive: Weakness Extremities: Absent: edema
[2019-04-15] MEDS ORDERED: CORDARONE PO SCH (10:00)
[2019-04-15] MEDS: SODIUM CHLORIDE FLUSH SYRINGE 10 ML IV SCH (10:26)
[2019-04-15] MEDS: HumuLIN R SUB-Q SCH (10:26)
[2019-04-15] MEDS: COREG PO SCH (10:26)
[2019-04-15] MEDS: ROCEPHIN/NS 1 GM/50 ML 1 GM/50 ML BAG IV SCH (10:26)
[2019-04-15] MEDS: COLACE PO SCH (10:26)
[2019-04-15] MEDS: MIRALAX 3350 PO SCH (10:26)
[2019-04-15] MEDS: ZITHROMAX 500 MG in NACL 0.9% 250ML 250 ML IV SCH (11:30)
[2019-04-15 12:11] VITALS: BP 93/63
--- NOTE | 2019-04-15 12:53 | Discharge Summary ---
Providers - Providers Date of Admission: 04/09/19 23:31 Date of discharge: 04/15/19 Attending physician: JYOTI VANN 04/10/19 02:48 Consult to Dietitian/Nutrition [CONS] Routine Physician Instructions: Reason For Exam: Reason for Consult: Malnutrition 04/10/19 09:29 Physical Therapy Evaluation and Treat [CONS] Routine Comment: Reason For Exam: difficulty walking Speech Therapy Evaluation and Treat [CONS] Routine Reason For Exam: dysphagia? 04/10/19 09:49 Consult to Physician [CONS] Routine Comment: LUDY Consulting Provider: RENATE AJ Physician Instructions: CONSULT WAS TO /GIOVANNA Reason For Exam: afib 04/12/19 23:42 Consult to Physician [CONS] Routine Comment: Consulting Provider: LOUIS FAIR Physician Instructions: Reason For Exam: icu admission 04/14/19 11:48 Consult to Physician [CONS] Routine Comment: Consulting Provider: ANTONETTE BURTON Physician Instructions: Reason For Exam: Left frontal lobe mass 04/14/19 11:49 Consult to Dietitian/Nutrition [CONS] Routine Physician Instructions: Reason For Exam: Reason for Consult: Malnutrition [facility] Hospital[facility] Condition: Stable Hospital course: Patient is a 64-year-old man with a history of hyperlipidemia, GERD, CKD, childhood [place] measles, 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 He was found to have a fever, no source. CT of the head shows possible subdural versus artifact on one slice of the CT head. Then on 04/12/19 patient developed acute respiratory failure and afib with RVR requring bipap and iv amiodarone drip and transfer to ICU. CTA done and negative but shows bilateral pleural effusions and bilateral ggo's throughout. Patient was given lasix and had significant improvement. Rate is now controlled and breathing is much improved. * 04/10/19 MRI brain without brain IMPRESSION: * Oval or round extra-axial lesion in the left frontal lobe region. Findings may represent meningioma, tumor, dural vessel, or hematoma. Further evaluation with MRI or CT head with contrast may be helpful if clinically indicated. Coronal and sagittal reconstructed imaging is recommended. * 04/10/19 Limited U/S abdomen IMPRESSION: Gallbladder demonstrates sludge and sludge ball. No cholelithiasis identified. No sonographic evidence of acute cholecystitis, Extrahepatic biliary dilatation. Clinical correlation. If further evaluation warranted, MRCP recommended No right hydronephrosis No free fluid Mild ectasia of the aorta.. * 04/12/19 CTA chest IMPRESSION: No evidence of pulmonary embolism Bilateral consolidations are consistent with bilateral pneumonia. Mild degree of bilateral pleural effusions Coronary arterial calcification Left lobe thyroid nodule. Ultrasound evaluation is recommended. Acute respiratory failure due to flash p. edema from Afib with RVR: Cardiology input noted, transition IV Amiodarone drip to oral Coreg, try to wean off O2, currently on 2 liters, he is refusing bipap at night. Pulm following Sepsis from Bilateral pneumonia, poa: continue abx, last day for abx 04/15/19 Dehydration/malnutrition and failure to thrive-Acid Tank Cleaner consulted Abnormal CT head-->Left frontal lobe unspecified Brain mass: consulted Neurology, ordered MRI brain with iv contrast Transaminitis with GB sludge -Statins on hold, repeat CMP, MRCP pending Type 2 diabetes-SSI, ada diet AFib with RVR- Rate controlled. Cardiology consulted, input noted, no Anticoagulation until Brain mass is worked up by Neurosurgeon, not available here Failure to trive/moderate malnutrition, poa Deconditioned: PT, OT and ST consult, gasoline pump mechanic consult, cont supportive care DVT prophylaxis with scds pending exclusion of subdural hematoma brain Disposition: home Referral to Neurosurgery Referral to GI outpatient Patient doesn't want MRI or anymore lab sticks, He wants to go home today, will honor his request. [place] identity access management architect aware reveals quite a bit of opioid and bzd use. I will not give refills Disposition: [id number]/TX-06 HOME UNDER HOME [facility] Time spent for discharge: 34 minutes Core Measure Documentation - Palliative Care Palliative Care/ Comfort Measures: Not Applicable - Core Measures Any of the following diagnoses?: none - VTE Discharge Requirements Deep Vein Thrombosis/Pulmonary Embolism Present on Admission: No Has pt received <5 days of overlap therapy or INR<2.0: No Anticoagulant overlap therapy prescribed at discharge: No Contraindication No Overlap Therapy order at DC: Not Indicated Exam - Physical Exam Narrative exam: Gen: chronically disable appearing, NAD, Awake, Alert, Orientated HEENT: NCAT, EOMI, PERRL, OP Clear Neck: supple, no adenopathy, no thyromegaly, no JVD CVS/Heart: irregular irregular, normal S1S2, pulses present bilaterally Chest/Lungs: bilateral crackles, Symmetrical chest expansion, good air entry bilaterally GI/Abdomen: soft, NTND, good bowel sounds, no guarding or rebound /Bladder: no suprapubic tenderness, no CVA or paraspinal tenderness Extermity/Skin: no obvious rash, significant Kyphosis MSK: FROM x 4 Neuro: CN 2-12 grossly intact, no new focal deficits Psych: calm - Constitutional Vitals: Temp Pulse Resp BP Pulse Ox 98.3 F 67 16 93/63 95 04/15/19 12:06 04/15/19 12:06 04/15/19 12:06 04/15/19 12:06 04/15/19 12:06 Plan Activity: other (no strenous activity) Diet: low salt, diabetic Additional Instructions: You have a Brain mass and need to see a Neurosurgeon, which is not available here. You also need to see a GI/stomach doctor to check your Gallbladder. You need your liver, eyes, lungs, heart rate and thyroid monitored while on Amidorone, see your Sewer Line Repairer/heart doctor [facility] [Primary Care Provider] - 3-5 Days IGNACIO MARIEE MD [Staff Physician] - 7 Days SHAHRAM BOYCE MD [Staff Physician] - 7 Days RENATE AJ MD [Staff Physician] - 7 Days Prescriptions: Docusate Sodium [Colace CAP] 100 mg PO BID #60 capsule Amiodarone [Cordarone 200 MG TAB] 200 mg PO DAILY #30 tablet Carvedilol [Coreg] 6.25 mg PO BID #60 tablet Polyethylene Glycol 3350 [Miralax 3350] 17 gm PO QDAY PRN #30 powd.pack PRN Reason: Constipation
== END 2019-04-15 14:22 | disposition home health service (06) | DRG 871 ==
LOC: ED 19:25 → 2B-ACE 23:31 → CC1 04-12 17:02 → 4A 04-13 14:40
PROVIDERS: ADMIT Internal Medicine; ATTEND Internal Medicine
PROC: 5A09357 Assistance with Respiratory Ventilation, Less than 24 Consecutive Hours, Continuous Positive Airway Pressure (ICD-10-PCS; principal; 2019-04-12)
DX: A41.9 Sepsis, unspecified organism (principal); G93.41 Metabolic encephalopathy; J18.9 Pneumonia, unspecified organism; J96.01 Acute respiratory failure with hypoxia; E44.0 Moderate protein-calorie malnutrition; E87.1 Hypo-osmolality and hyponatremia; I48.91 Unspecified atrial fibrillation; E86.0 Dehydration; G93.9 Disorder of brain, unspecified; K21.9 Gastro-esophageal reflux disease without esophagitis; E11.22 Type 2 diabetes mellitus with diabetic chronic kidney disease; R74.0 Nonspecific elevation of levels of transaminase and lactic acid dehydrogenase [LDH]; N18.9 Chronic kidney disease, unspecified; I12.9 Hypertensive chronic kidney disease with stage 1 through stage 4 chronic kidney disease, or unspecified chronic kidney disease; D75.1 Secondary polycythemia; E78.5 Hyperlipidemia, unspecified; E66.9 Obesity, unspecified; F03.90 Unspecified dementia, unspecified severity, without behavioral disturbance, psychotic disturbance, mood disturbance, and anxiety; F32.9 Major depressive disorder, single episode, unspecified; F41.9 Anxiety disorder, unspecified; Z68.27 Body mass index [BMI] 27.0-27.9, adult
CPT/HCPCS: 36415; 70450; 70460; 70551; 71045; 71046; 71275; 76705; 80048; 80053; 80061; 80307; 80320; 81001; 82140; 82247; 82248; 82550; 82553; 82962; 84443; 84484; 85025; 85027; 85610; 87040; 87086; 93005; 93010; 93306; 94660; 94760; 96361; 96374; 99406; G0378; G0480; J0282; J0456; J0696; J1650; J1940; J2060; J2543; J7030; J7050; J7060; Q9967

== ENCOUNTER 2019-07-11 07:10 | Emergency (ER) | payer MEDICARE ==
[2019-07-11] MEDS ORDERED: CALCIUM CHLORIDE IV ONE (07:18)
[2019-07-11] MEDS ORDERED: HumuLIN R ONE (07:18)
[2019-07-11] MEDS ORDERED: D50W (25GM) Syringe IV ONE (07:35)
[2019-07-11] MEDS ORDERED: ADRENALIN ONE (07:35)
--- NOTE | 2019-07-11 09:10 | Emergency Department Report ---
ED CPR HPI - General Chief Complaint: Cardiac Arrest/CPR Stated Complaint: CARDIAC ARREST Time Seen by Provider: 07/11/19 07:36 Source: EMS Mode of arrival: Stretcher Limitations: Other - History of Present Illness Initial Comments: Patient arrived to the emergency department for cardiac arrest. Upon arrival via EMS the patient was receiving chest compressions and ventilation through ET tube. Per the finance attorney the patient was heard screaming and wanting an appointment and to room the patient was not breathing. No other information was gathered from the scene. Patient received 2 mg of epinephrine in route and was intubated. MD Complaint: stopped breathing Place: home ROSC in the Field: No Associated Injuries: No Treatments Prior to Arrival: intubation, BMV, epinephrine mgs # - Related Data Home Medications Medication Instructions Recorded Confirmed Last Taken Rosuvastatin Calcium [Crestor] 40 mg PO QHS 02/01/04/10/19 Unknown Previous Rx's Medication Instructions Recorded Last Taken Type ALPRAZolam [Xanax TAB] 1 mg PO TID PRN #10 tablet 04/15/19 Unknown Rx Amiodarone [Cordarone 200 MG TAB] 200 mg PO DAILY #30 tablet 04/15/19 Unknown Rx Carvedilol [Coreg] 6.25 mg PO BID #60 tablet 04/15/19 Unknown Rx Docusate Sodium [Colace CAP] 100 mg PO BID #60 capsule 04/15/19 Unknown Rx Polyethylene Glycol 3350 [Miralax 17 gm PO QDAY PRN #30 powd.pack 04/15/19 Unknown Rx 3350] oxyCODONE /ACETAMINOPHEN [Percocet 1 tab PO Q6H PRN #10 tablet 04/15/19 Unknown Rx 5/325 mg] Allergies Allergy/AdvReac Type Severity Reaction Status Date / Time blue dye AdvReac Mild Seizure Unverified 06/18/19 08:22 ED Review of Systems ROS: Stated complaint: CARDIAC ARREST Other details as noted in HPI Comment: Unobtainable due to pts medical conditions ED Past Medical Hx - Past Medical History Hx Renal Disease: Yes (stage 1) Hx Psychiatric Treatment: Yes (anxiety) Hx Dementia: Yes Additional medical history: ANXIETY/ CHRONIC BACK PAIN/hyperlipidemia - Surgical History Additional Surgical History: unknown - Social History Smoking Status: Current Every Day Smoker - Medications Home Medications: Home Medications Medication Instructions Recorded Confirmed Last Taken Type Rosuvastatin Calcium [Crestor] 40 mg PO QHS 02/02/16 04/10/19 Unknown History ALPRAZolam [Xanax TAB] 1 mg PO TID PRN #10 tablet 04/15/19 Unknown Rx Amiodarone [Cordarone 200 MG TAB] 200 mg PO DAILY #30 tablet 04/15/19 Unknown Rx Carvedilol [Coreg] 6.25 mg PO BID #60 tablet 04/15/19 Unknown Rx Docusate Sodium [Colace CAP] 100 mg PO BID #60 capsule 04/15/19 Unknown Rx Polyethylene Glycol 3350 [Miralax 17 gm PO QDAY PRN #30 powd.pack 04/15/19 Unknown Rx 3350] oxyCODONE /ACETAMINOPHEN [Percocet 1 tab PO Q6H PRN #10 tablet 04/15/19 Unknown Rx 5/325 mg] ED Physical Exam - General Limitations: Other General appearance: other (intubated;unresponsive) - Head Head exam: Present: atraumatic, normocephalic - Eye Eye exam: Present: other (pupils are fixed and not responsive to light) - ENT ENT exam: Present: mucous membranes dry - Neck Neck exam: Present: normal inspection - Respiratory Respiratory exam: Present: normal lung sounds bilaterally, other (bilateral breath sounds with bagging ) - Cardiovascular Cardiovascular Exam: Present: other (asystole) - GI/Abdominal GI/Abdominal exam: Present: soft, distended (distended but soft) - Rectal Rectal exam: Present: deferred - Extremities Exam Extremities exam: Absent: pedal edema - Back Exam Back exam: Present: normal inspection - Neurological Exam Neurological exam: Present: other (unresponsive; GCS of 3T) - Psychiatric Psychiatric exam: Present: normal affect, normal mood - Skin Skin exam: Present: warm, dry, intact, normal color. Absent: rash ED Medical Decision Making - Medical Decision Making Patient arrived to the emergency department receiving chest compressions and in the PEA patient was given a total of 4 doses of epinephrine, 2 doses of sodium bicarbonate, an amp of calcium gluconate, an amp of D50, 10 units of insulin Time of spontaneous circulation was obtained and at this time the patient's sister arrived who had power of finance attorney and stated the patient would not want all of these things done and he was a DO NOT RESUSCITATE. She had the power of finance attorney information with her but not the DO NOT RESUSCITATE At this time the sister asked for DO NOT RESUSCITATE paperwork and was given Time of is 7:35 AM Please see the code sheet for more information Critical care attestation.: If time is entered above; I have spent that time in minutes in the direct care of this critically ill patient, excluding procedure time. ED Disposition Clinical Impression: Cardiac arrest Disposition: DC-20 Is pt being admited?: No Does the pt Need Aspirin: No Referrals: FILEMON ESQUIVEL MD [Primary Care Provider] - 3-5 Days
[2019-07-11] MEDS ORDERED: NACL 0.9% 1000 ML 1,000 ML ONE (12:40)
== END 2019-07-11 08:30 ==
LOC: ED 07:10
DX: I46.9 Cardiac arrest, cause unspecified (principal); F41.9 Anxiety disorder, unspecified; M54.9 Dorsalgia, unspecified; G89.29 Other chronic pain; E78.5 Hyperlipidemia, unspecified; F17.200 Nicotine dependence, unspecified, uncomplicated; N18.1 Chronic kidney disease, stage 1; Z91.041 Radiographic dye allergy status; Z79.899 Other long term (current) drug therapy
CPT/HCPCS: 31500; 82962; 92950; 99285; J0171; J7030; J1815